=== PATIENT | female | born 1965 | race Caucasian/White ===

== ENCOUNTER 2023-04-22 20:12 | Emergency (ER) | payer BC, SELFPAY ==
[2023-04-22 20:25] VITALS: BP 127/67; PULSE 104; RESP 28; TEMP 39.8; O2SAT 94; BMI 24.4
[2023-04-22 20:44] VITALS: O2SAT 97
--- NOTE | 2023-04-22 20:44 | ED_ITS ---
HPI - Fever General Chief Complaint: Fever Stated Complaint: Flu like symptoms since Sunday Time Seen by Provider: 04/22/23 20:35 History of Present Illness HPI Narrative: This 57-year-old female arrives with generalized malaise and a temperature at 103.6? F. She denies having any cough or dysuria symptoms. She does arrive with borderline tachycardia and respiratory rate at 28 breaths per minute. Her blood pressure and oximetry are in normal range. She states that symptoms began for 5 days ago. Prior to this she was in good health. Related Data Previous Rx's Medication Instructions Recorded amoxicillin 875 mg-potassium 1 tab PO BID #20 tabs 04/22/23 clavulanate 125 mg tablet Allergies Allergy/AdvReac Type Severity Reaction Status Date / Time ciprofloxacin [From Cipro] AdvReac Mild GI upset Verified 04/22/23 20:32 Review of Systems Status of ROS Reports: 10 or more systems reviewed and unremarkable except as noted in History and below Narrative Constitutional: No weight gain or loss. Fever as described above. Eyes: No discharge. No vision changes. HENT: No congestion, no sore throat, no ear pain. Cardiovascular: No chest pain, no palpitations. Respiratory: No shortness of breath, no wheezes, no cough. Gastrointestinal: No abdominal pain, no vomiting, no diarrhea. Genitourinary: No dysuria, no hematuria. Musculoskeletal: Normal range of motion. Skin: No rashes, no pruritis. Neurological: No dizziness, weakness, sensory change, speech change. Endo/Heme/Allergies: No bruising or bleeding. No polydipsia. Pysch: no suicidality, no anxiety, no insomnia. All other systems reviewed and are negative. [facility] Medical History (Updated 04/22/23 @ 21:44 by Toribio Newberry MD) Malignant neoplasm of colon ?C18.9 - Malignant neoplasm of colon, unspecified (ICD-10) Misuse of drugs ?F19.90 - Other psychoactive substance use, unspecified, uncomplicated (ICD- 10) Major depressive disorder, single episode in full remission ?F32.5 - Major depressive disorder, single episode, in full remission (ICD- 10) History of suicide attempt ?Z91.51 - Personal history of suicidal behavior (ICD-10) Closed fracture of ankle ?S82.899A - Other fracture of unspecified lower leg, initial encounter for closed fracture (ICD-10) Surgical History (Updated 04/22/23 @ 20:31 by Velvet Esqueda RN) H/O tubal ligation ?Z98.51 - Tubal ligation status (ICD-10) Social History Smoking Status: Never smoker How often do you have a drink containing alcohol: never AUDIT-C Alcohol total score: 0 Non-prescribed substance use: denies use Exam Narrative Exam Narrative: Constitutional: Well-developed, well-nourished. She is uncomfortable with significant fever. HEENT: Normocephalic, atraumatic. Neck: Normal range of motion. Nontender. Supple. Heart: Regular. No murmurs. Normal rate. Intact distal pulses. Lungs: Clear to auscultation. No chest discomfort. No wheezes, rhonchi, or rales. Abdomen: Normal bowel sounds. Nontender. No rebound tenderness. Genitalia: Deferred. Back: No midline tenderness. Normal range of motion. Extremities: Normal range of motion. No injury. Skin: Intact. No rash. Warm. No erythema or pallor. Neurologic: No altered sensation. No weakness. Alert and oriented. Psychiatric: No suicidality. No anxiety or depression. No insomnia. Nursing notes and vitals signs are reviewed. Const Vital Signs, click to edit/add: Vital Signs - 24 hr 04/22/23 20:25 04/22/23 20:44 Temperature 103.6 F H Pulse Rate [Left Pulse Oximeter] 104 H Respiratory Rate 28 H Blood Pressure [Left Upper Arm] 127/67 Pulse Oximetry 94 97 Oxygen Delivery Method Room Air Room Air Course Vital Signs Vital signs: Initial Vital Signs Temperature 103.6 F H 04/22/23 20:25 Temperature Source Temporal Artery Scan 04/22/23 20:25 Pulse Rate 104 H 04/22/23 20:25 Respiratory Rate 28 H 04/22/23 20:25 Blood Pressure 127/67 04/22/23 20:25 Blood Pressure Mean 87 04/22/23 20:25 Blood Pressure Position Right Lateral 04/22/23 20:25 Pulse Oximetry 94 04/22/23 20:25 Oxygen Delivery Method Room Air 04/22/23 20:25 Vital Signs Temperature 103.6 F H 04/22/23 20:25 Pulse Rate 104 H 04/22/23 20:25 Respiratory Rate 28 H 04/22/23 20:25 Blood Pressure 127/67 04/22/23 20:25 Pulse Oximetry 94 04/22/23 20:25 Oxygen Delivery Method Room Air 04/22/23 20:25 Temperature 103.6 F H 04/22/23 20:25 Pulse Rate 104 H 04/22/23 20:25 Respiratory Rate 28 H 04/22/23 20:25 Blood Pressure 127/67 04/22/23 20:25 Pulse Oximetry 97 04/22/23 20:44 Oxygen Delivery Method Room Air 04/22/23 20:44 Medications Administered Medications: Generic Name Dose Route Start Last Admin Trade Name Gideon PRN Reason Stop Dose Admin Acetaminophen 1,000 mg 04/22/23 20:42 04/22/23 21:12 Acetaminophen 500 Mg Tablet PO 04/22/23 20:43 1,000 mg ONCE ONE Administration Sodium Chloride 1,000 mls @ 1,000 mls/hr 04/22/23 20:45 04/22/23 21:12 0.9 % Sodium Chloride 1000 Ml IV 04/22/23 21:44 1,000 mls/hr .Q1H CORDELIA Administration Ketorolac Tromethamine 30 mg 04/22/23 20:42 04/22/23 21:11 Ketorolac 30 Mg/Ml Inj IVP 04/22/23 20:43 30 mg ONCE ONE Administration MDM - Fever MDM Narrative Medical decision making narrative: This patient comes in with generalized malaise and a fever of 103.6? F. She does not report any cough or dysuria symptoms. She arrives with a bit of tachypnea and borderline tachycardia but otherwise has reassuring vital signs. I did order an IV with a L of normal saline, Toradol 30 mg. Lab results returned with a white count almost 18,000 and other lab results essentially normal. Her sodium is a bit low at 129. Her lactate level returns at 1.0. Nasal pharyngeal swab is negative for COVID, influenza, and RSV. Chest x-ray is obtained and by my review shows no acute infiltrate. Urinalysis is also acquired but results are pending at the time when the patient feels that she now wants to go home. She is diaphoretic now as her fever is breaking. I did not find an obvious source for her fever but given the white count at 18,000 and the urine results pending I did order her a g of Rocephin. This was administered after blood and urine. cultures are obtained . the patient is insistent that she wants to go home. She does not live alone at home. I did provide a prescription for Augmentin. Lab Data Labs: Lab Results 04/22/23 04/22/23 Range/Units 20:28 20:59 WBC 17.89 H (4.50-11.00) K/uL RBC 4.38 (4.00-5.20) m/uL Hgb 14.1 (12.0-16.0) gm/dL Hct 42.0 (33.0-51.0) % MCV 96 (80-100) fL MCH 32 (26-34) pg MCHC 34 (32-36) gm/dL RDW Coeff of Gayathri 11.8 (11.5-15.5) % Plt Count 190 (140-440) K/uL Neut % (Auto) 85.7 H (42.0-72.0) % Lymph % (Auto) 4.4 L (20-44) % Larue % (Auto) 9.3 (0.0-11.0) % Eos % (Auto) 0.1 (0.0-7.0) % Baso % (Auto) 0.2 (0.0-3.0) % Neut # (Auto) 15.30 H (1.7-7.0) K/uL Lymph # (Auto) 0.80 L (0.90-2.90) K/uL Larue # (Auto) 1.70 H (0.00-0.90) K/UL Eos # (Auto) 0.00 (0.00-0.50) K/uL Baso # (Auto) 0.00 (0.00-0.30) K/uL Abs Immat Gran (auto) 0.10 (0.00-0.30) K/uL Imm/Tot Granulo (auto) 0.3 % Sodium 129 L (135-149) mmol/L Potassium 3.9 (3.6-5.1) mmol/L Chloride 95 L (96-114) mmol/L Carbon Dioxide 24 (20-32) mmol/L Anion Gap 10 (7-15) mEq/L BUN 17 (7-30) mg/dL Creatinine 1.0 (0.5-1.5) mg/dL Estimated Creat Clear 67.93 Estimated GFR 66 ml/min Glucose 128 H (60-115) mg/dL Lactate 1.0 (0.5-1.9) mmol/L Calcium 9.2 (8.4-10.6) mg/dL SARS-CoV-2 (PCR) Negative SARS-CoV-2 (Negative) Influenza Type A (PCR) Negative PCR FLU A (Negative) Influenza Type B (PCR) Negative PCR FLU B (Negative) RSV (PCR) Negative PCR RSV (Negative) Discharge Plan Discharge Clinical Impression: Fever Patient Disposition: Home, Self-Care Condition: Improved Additional Instructions: Take medication as prescribed. Follow up with MD return if not improving or worsening. Prescriptions: New amoxicillin-pot clavulanate 875-125 mg tablet 1 tab PO BID Qty: 20 0RF Follow Up/Referrals: Provider,Not a Local [Primary Care Provider] - Stand Alone Forms: [email or web address] Info Instructions
--- NOTE | 2023-04-22 20:44 | XR_ITS ---
Final Report Patient: MITCHELL MCPHERSON Facility:?[facility] Patient ID:?[id number] Site Patient ID:?[id number] Site :?1965 Study:?XRay Chest 1V PORTABLE-04/22/2023 9:30:15 PM Ordering Physician:MUKUL Final Report: INDICATION: Fever, tachypnea, aches TECHNIQUE: Chest radiograph 1 view COMPARISON: None FINDINGS: Mediastinum: The mediastinum is normal in appearance. The heart silhouette is normal in size and morphology. Lung: Both lungs are unremarkable in appearance. No sign of pleural effusion seen. No pneumothorax is identified. Bone and Soft tissue: Unremarkable for age. IMPRESSION: 1. No acute cardiopulmonary disease is seen. Dictated by: Heraclio Oneill MD @ 04/22/2023 21:32:59 (Electronic Signature)
[2023-04-22 21:06] LABS: Basophils Percent Auto 0.2 % (0.0-3.0); Eosinophils Percent Auto 0.1 % (0.0-7.0); Hemoglobin* 14.1 gm/dL (12.0-16.0); Immature Granulocytes Pct Auto 0.3 %; Lymphocytes Percent Auto 4.4 % (20-44); Mean Corpuscular HGB Conc 34 gm/dL (32-36); Mean Corpuscular Hemoglobin 32 pg (26-34); Mean Corpuscular Volume 96 fL (80-100); Monocytes Percent Auto 9.3 % (0.0-11.0); Neutrophils Percent Auto 85.7 % (42.0-72.0); Platelet Count* 190 K/uL (140-440); RDW Coefficient of Variation % 11.8 % (11.5-15.5); Red Blood Count 4.38 m/uL (4.00-5.20); White Blood Count* 17.89 K/uL (4.50-11.00)
[2023-04-22 21:07] LABS: Slide Review Reflex No
[2023-04-22] MEDS: KETOROLAC 30 MG/ML inj IVP (21:11)
[2023-04-22] MEDS: ACETAMINOPHEN 500 MG TABLET 1000 MG PO (21:12)
[2023-04-22] MEDS: 0.9 % SODIUM CHLORIDE 1000 ml 1,000 ML IV (21:12)
[2023-04-22 21:15] LABS: PCR FLU A Negative PCR FLU A (Negative); PCR FLU B Negative PCR FLU B (Negative); PCR RSV Negative PCR RSV (Negative); SARS PCR* Negative SARS-CoV-2 (Negative)
[2023-04-22 21:21] LABS: Chloride* 95 mmol/L (96-114); Potassium* 3.9 mmol/L (3.6-5.1); Sodium* 129 mmol/L (135-149)
[2023-04-22 21:24] LABS: Anion Gap 10 mEq/L (7-15); Blood Urea Nitrogen* 17 mg/dL (7-30); Carbon Dioxide* 24 mmol/L (20-32); Est. Creatinine Clearance* 67.93; Estimated Glomerular Filt Rate 66 ml/min; Glucose* 128 mg/dL (60-115)
[2023-04-22 21:25] LABS: Calcium* 9.2 mg/dL (8.4-10.6)
--- OUTSIDE RECORDS SUMMARY | 2023-04-22 21:27 | XMS_ITS | Clinical Summary ---
Author Name Unknown Organization [facility] Address [address] [place] [address] Care Team Providers Care Forensic Psychologist Name Role Phone Elsewhere, Pcp Primary Care Provider Unavailabl e Source Comments Patient records contain information from all sites at [facility]. For routine questions regarding patient records, call [phone] during business hours, M-F 8:00 AM - 5:00 PM Central Time. Record requests for emergency care only can be directed to [phone] at any time.[facility] Allergies Active Allergy Reactions Criticality Noted Date Comments Ciprofloxacin Other (see comments) Medium 07/02/2008 Other reaction(s): Stomach Upset Medications Medication Sig Dispensed Refills Start Date End Date Status estradioL (VAGIFEM) 10 mcg vaginal tablet Insert 1 tablet (10 mcg) into vagina at bedtime for two weeks then at bedtime twice a week. 27 tablet 3 07/05/2021 Active clobetasoL (TEMOVATE) 0.05 % ointment Apply 1 application topically 2 (two) times a week. Apply thin layer to genital skin as directed in clinic 30 g 1 08/08/2021 Active Additional Information Patient not taking.Reported on 03/01/2023 valACYclovir (VALTREX) 1000 mg tablet Take 1 tablet (1,000 mg total) by mouth 3 (three) times a day. 21 tablet 0 09/12/2021 Active Additional Information Patient not taking.Reported on 03/01/2023 acetaminophen (TYLENOL) 325 mg tablet Take 325 mg by mouth every 4 (four) hours as needed for pain. 0 Active multivitamin chewable tablet Chew 1 tablet daily. 0 Active naproxen (NAPROSYN) 500 mg tablet Take 1 tablet (500 mg total) by mouth 2 (two) times a day as needed for pain (pain). Take with food 60 tablet 1 01/06/2022 Active Ventolin HFA 90 mcg/actuation inhaler INHALE 1 TO 2 PUFFS BY MOUTH EVERY 4 HOURS NEEDED FOR SHORTNESS OF BREATH OR WHEEZING 0 03/27/2022 Active hydrOXYzine (ATARAX) 10 mg tablet Take 1 tablet (10 mg total) by mouth 4 (four) times a day as needed for anxiety. 30 tablet 0 06/07/2022 Active predniSONE (DELTASONE) 20 mg tablet Take 3 tabs (60 mg) daily for 3 days, then take 2 tabs (40 mg) daily for 2 days, then take 1 tab (20 mg) daily for 2 days. 18 tablet 0 06/07/2022 Active Additional Information Patient not taking.Reported on 03/01/2023 varenicline (CHANTIX URIEL) 0.5 mg (11)- 1 mg (42) tablet Use as directed on package instructions, try to quit smoking after 1 week. 53 tablet 0 06/07/2022 Active Additional Information Patient not taking.Reported on 03/01/2023 varenicline (CHANTIX) 1 mg tablet Take 1 tablet (1 mg total) by mouth 2 (two) times a day. Take with full glass of water. 60 tablet 2 06/07/2022 Active Additional Information Patient not taking.Reported on 03/01/2023 nicotine (NICODERM CQ) 21 mg/[address] 1 patch on the skin daily. 28 patch 0 06/07/2022 Active Additional Information Patient not taking.Reported on 03/01/2023 nicotine (NICODERM CQ) 14 mg/[address] 1 patch on the skin daily. 28 patch 0 06/07/2022 Active Additional Information Patient not taking.Reported on 03/01/2023 Active Problems Problem Noted Date Diagnosed Date Lichen Sclerosus 05/16/2021 Suicide Attempt Personal History 01/12/2020 Overview: Tylenol overdose 01/2020 Depression Major One Episode Full Remission 11/2019 Overdose Drug Personal History 01/12/2020 Overview: Tylenol overdose 01/2020 Other Stimulant Use Unspecified Uncomplicated Overview: Meth use Nicotine Dependence Cigarettes 03/01/2007 Encounters Date Type Department Care Team Description 04/10/2023 Orders Only [facility] PCP [facility] Roxanna Burnett APRN, C.N.P. Screening Lipid; Screening Mammogram Breast Cancer 03/01/2023 6:30 PM [employer] Office Visit Urgent Care, [facility], in [place] [address] [place] [phone] Zaida Ragland APRN, C.N.P., D.N.P. Pruritus Ani (Primary Dx); Pruritus Vagina; Diarrhea; Vaginosis Bacterial Discharge Disposition: Home or Self Care from Last 3 Months Immunizations Name Administration Dates Next Due Td (Adult), adsorbed 06/14/1998 Tdap 10/18/2009 Family History Medical History Relation Name Comments No Known Problems Brother 1 No Known Problems Brother 2 Breast cancer Cousin No Known Problems Daughter 1 Cardiac pacemaker Father Breast cancer Maternal Grandmother Breast cancer Mother Cancer Mother Breast cancer Mother's Sister No Known Problems Sister No Known Problems Son Relation Name Status Comments Brother 1 Alive Brother 2 Alive Cousin Daughter 1 Alive Daughter 2 Alive Father Alive Maternal Grandmother Mother Mother's Sister Sister Alive Son Alive Social History Tobacco Use Types Packs/Day Years Used Date Smoking Tobacco: Former Cigarettes 1 Q uit: 04/09/2022 Smokeless Tobacco: Never Tobacco Cessation:Counseling Given: Not Answered Alcohol Use Standard Drinks/Week Comments Not Currently 0 (1 standard drink = 0.6 oz pur e alcohol) not no more Humiliation, Afraid, Rape, and Kick questionnair e Answer Date Recorded Within the last year, have y ou been afraid of your partner or ex-partner? No 06/01/2021 Within the last year, have y ou been humiliated or emotionally abused in other ways by your partner or ex-partner? Patient declined 06/01/2021 Within the last year, have y ou been kicked, hit, slapped, or otherwise physically hurt by your partner or ex-partner? Patient declined 06/01/2021 Within the last year, have y ou been raped or forced to have any kind of sexual activity by your partner or ex-partner? No 06/01/2021 Social Connection and Isolation Panel [NHANES] A nswer Date Recorded In a typical week, how many times do you talk on the phone with family, friends, or neighbors? Three times a week 06/01/2021 How often do you get togethe r with friends or relatives? Once a week 06/01/2021 How often do you attend chur or jehovah's witness services? Never 06/01/2021 Do you belong to any clubs o r organizations such as latter-day groups, unions, fraternal or athletic groups, or school groups? No 06/01/2021 How often do you attend meet ings of the clubs or organizations you belong to? Never 06/01/2021 Are you , , di vorced, , never , or living with a partner? Never 06/01/2021 AUDIT-C Answer Date Recorded Q1: How often do you have a drink containing alc ohol? 2-4 times a month 06/01/2021 Q2: How many drinks containi ng alcohol do you have on a typical day when you are drinking? 1 or 2 06/01/2021 Q3: How often do you have si x or more drinks on one occasion? Never 06/01/2021 Overall Financial Resource Strain (CARDIA) Answe r Date Recorded How hard is it for you to pa y for the very basics like food, housing, medical care, and heating? Hard 06/01/2021 PHQ-2 Answer Date Recorded PHQ-2 Score 0 01/06/2022 [facility] - Occupational Stress Questionnaire Answer Date Recorded Do you feel stress - tense, restless, nervous, or anxious, or unable to sleep at night because your mind is troubled all the time - these days? Only a little 06/01/2021 Exercise Vital Sign Answer Date Recorde d On average, how many days pe r week do you engage in moderate to strenuous exercise (like a brisk walk)? 3 days 06/01/2021 On average, how many minutes do you engage in exercise at this level? 30 min 06/01/2021 Hunger Vital Sign Answer Date Recorded Within the past 12 months, y ou worried that your food would run out before you got the money to buy more. Patient declined Within the past 12 months, t he food you bought just didn't last and you didn't have money to get more. Patient declined PRAPARE - Transportation Answer Date Re corded In the past 12 months, has l ack of transportation kept you from medical appointments or from getting medications? No 05/05 In the past 12 months, has l ack of transportation kept you from meetings, work, or from getting things needed for daily living? No 06/01/2021 Housing Stability Vital Sign Answer Zhou e Recorded In the last 12 months, was t here a time when you were not able to pay the mortgage or rent on time? Yes 06/01/2021 In the last 12 months, how many places have you lived? 4 06/01/2021 In the last 12 months, was t here a time when you did not have a steady place to sleep or slept in a senior care (including now)? Yes 06/01/2021 Depression Answer Date Recor ded PHQ-9 Total Score (max 27) 0 01/06 Nutrition Answer Date Recorded Nutrition: EVOO Fat Source No 06/01 On average, how many serving s of fruits and vegetables do you eat per day (serving size is equal to 1 cup or approximately the size of a tennis ball)? 0-1 06/01/2021 Dental Answer Date Recorded Dental: Regular Dentist No 06/02/19 22 Employment Answer Date Recorded Employment status Unemployed/not in th e paid workforce but seeking employment 06/01/2021 Education Answer Date Recorded What is the highest level of school you have completed or the highest degree you have received? GED or equivalent Sex and Gender Information Value Date Recorded Sex Assigned at Female 05/01/2018 3:00 PM [employer] Gender Identity Female 05/01/2018 3:00 PM [employer] Sexual Orientation Straight 05/17/2020 9: 58 PM CDT Last Filed Vital Signs Vital Sign Reading Time Taken Comments Blood Pressure 147/98 03/01/2023 5:49 PM [employer] Pulse 73 06/07/2022 1:49 PM CDT Temperature 36.8 ??C (98.2 ??F) 03/01/2023 5:45 PM CS T Respiratory Rate 20 03/01/2023 5:45 PM [employer]ER Oxygen Saturation 97% 03/01/2023 5:45 PM [employer]ER Inhaled Oxygen Concentration - - Weight 79 kg (174 lb 2.6 oz) 03/01/2023 5:45 PM [employer]ER Height 181 cm (5' 11.26) 01/06/2022 4:12 PM CDT Body Mass Index 24.11 01/06/2022 4:12 PM CDT Plan of Treatment Health Maintenance Due Date Last Done Comments CT Colonography 1965 Cologuard 1965 Colonoscopy 1965 Colorectal Cancer Screening 1965 FIT 1965 HIV Screening 1965 Hepatitis B Vaccines (1 of 3 - 3-dose series) 1965 Hepatitis C Screening 1965 COVID-19 Vaccine (#1) 05/04/1967 Hepatitis A Vaccines (1 of 2 - Risk 2-dose series) 1985 Zoster Vaccines (1 of 2) 2016 DTaP,Tdap,and Td Vaccines (2 - Td or Tdap) 10/19/2019 10/18/2009, 06/14/1998 Depression Monitoring (PHQ-9) 05/06/2022 01/06/2022 Cervical Cancer Screening 05/11/20222021, 05/11/2021, 03/24/2018 Mammogram 06/15/2022 06/15/2021, 03/11/2018 Influenza Vaccine (#1) 2022 Lipid (Cholesterol) Screening 06/05/2023 06/04/2018 Fasting Glucose for Diabetes Screening 10/29/2023 10/28/2020, 05/03/2020, 01/13/2020, Additional history exists Pneumococcal vaccine (0-64 years) Aged Out No longer eligible based on patient's age to complete this topic Medical Devices Implanted Type Area Crm Marketing Analyst Device Identifier Shelf Expiration Date Model / Serial / Lot 3.5 Mm Cortex Screw Self Tapping 20mm Implanted:Qty: 1 on 05/04/2020 by Pritesh Gagnon M.D. at [facility] Ankle Implant [employer] 204. 820 / 204.820 / Scrw Lcp St Lck Lp 3.5x16 - [id number] Implanted:Qty: 3 on 05/04/2020 by Pritesh Gagnon M.D. at [facility] Hardware e.g. pins/screws/r ods [employer] [id number] / / Procedures Procedure Name Priority Date/Time Associated Diagnosis Comments BACTERIAL CULTURE, AEROBIC + SUSC STAT 03/01/2023 6:22 PM [employer]ER Pruritus Ani VAGINITIS PANEL STAT 03/01/2023 6:22 PM [employer]ER Pruritus Vagina from Last 3 Months Results * (ABNORMAL) Vaginitis Panel (03/01/2023 6:22 PM [employer] TENDER) Mayra species, DNA Negative Negative 03/01/2023 7:15 PM [employer]ER NPRG Gardnerella vaginalis, DNA Positive(A) Negative 03/01/2023 7:15 PM [employer]ER NPRG Trichomonas vaginalis, DNA Negative Negative 03/01/2023 7:15 PM [employer] T[employer]ER NPRG Swab (Vagina) 03/01/2023 6:2 2 PM [employer] CON[employer]YOR TENDER 03/01/2023 6:28 PM [employer] CON[employer]OR TENDER Nydia Ma APRNN.Carol, D.N.P. LAB M [facility] ORDERABLES [facility] [address] [place] [address], [facility] NPRG [facility] [address] [place] [address] * Bacterial Culture, Aerobic + Susceptibility (03/01/2023 6:22 PM CHIP [employer] CON[employer]YOR TENDER) Bacterial Culture, Aerobic + Susc Usual microbiota 03/04/2023 9:58 AM CH[employer] CON[employer]OR TENDER MKTO Swab (Anus) 03/01/2023 6:22 PM CHIP [employer] CONVEYOR TENDER 03/01/2023 10:13 PM CHIP [employer] CON[employer]YOR TENDER Comment:Specimen Source Site : Swab Fuad Ma APRN.N.PPaul, D.N.P. LAB M ICROBIOLOGY - GENERAL ORDERABLES [facility] [address] [place] [address], [place] MKTO [facility] [place] [address] [place] [address] from Last 3 Months Advance Directives For more information, please contact: [phone] Latest Code Status on File Code Status Date Activated Date Inactivated Comments Full Code 01/12/2020 12:25 AM 01/13/2020 6:16 PM Question Answer Comments Full Code: Not Discussed Due to: Patient does not have the capaci ty Suicidal Care Teams Forensic Psychologist Relationship Specialty Start Date End Date Elsewhere, Pcp PCP - General Internal Medicine 04/11/23
--- OUTSIDE RECORDS SUMMARY | 2023-04-22 21:27 | XMS_ITS | Encounter Summary ---
Author Name Unknown Organization [facility] Address [address] [place] [address] Care Team Providers Care Administrative Assistant Data Entry Name Role Phone Roxanna Burnett APRN, C.N.P. Primary Care Provide r Reason for Referral * Outpatient (Routine) - Authorized Specialty Diagnoses / Procedures Referred By Duc castillo Referred To Contact Family Medicine Roxanna Burnett APRN, C.N.P. [address] [place] [address] [facility] Region Referral ID Status Reason Start Date Expiration Date V isits Requested Visits Authorized [id number] Authorized 04/10/2023 10/09/2024 1 1 MILLER * Outpatient (Routine) - Authorized Specialty Diagnoses / Procedures Referred By Duc castillo Referred To Contact Diagnoses Screening Mammogram Breast Cancer Procedures BI Breast Screening Bilateral with Tomosynthesis Roxanna Burnett APRN, C.N.P. [address] [place] [address] [facility] Region Referral ID Status Reason Start Date Expiration Date V isits Requested Visits Authorized [id number] Authorized 04/10/2023 04/09/2024 1 1 MILLER Encounter Details Date Type Department Care Team (Late st Contact Info) Description 04/10/2023 Orders Only [facility] Roxanna Burnett, FOOD MANAGER, C.N.P. [address] [place] [phone] Screening Lipid; Screening Mammogram Breast Cancer Social History Tobacco Use Types Packs/Day Years Used Date Smoking Tobacco: Former Cigarettes 1 Q uit: 04/09/2022 Smokeless Tobacco: Never Alcohol Use Standard Drinks/Week Comments Not Currently [...] 06/01/2021 How often do you attend chur ch or quaker services? Never 06/01/2021 Do you belong to any clubs o r organizations such as spiritism groups, unions, fraternal or athletic groups, or [...] Answer Date Recorded PHQ-2 Score 0 01/06/2022 [facility] - [...] place to sleep or slept in a long term (including now)? Yes 06/01/2021 Depression Answer Date [...] Date Recorded Dental: Regular Dentist No 06/02/19 Employment Answer Date Recorded Employment status Unemployed/not in th e paid workforce but seeking employment 06/01/2021 Education Answer Date Recorded What is the highest level of school you have completed or the highest degree you have received? GED or equivalent Sex and Gender Information Value Date Recorded Sex Assigned at Female 05/01/2018 3:00 PM MEAL MILLER Gender Identity Female 05/01/2018 3:00 PM MEAL MILLER Sexual Orientation Straight 05/17/2020 9: 58 PM CDT documented as of this encounter Plan of Treatment Scheduled Orders Name Type Priority Associated Diagnoses Order Schedule Lipid Panel Lab Routine Screening Lipid Expected: 04/24/2023, Expires: 10/07/2023 BI Breast Screening Bilateral with Tomosynthesis Imaging RAD - Routine (most inpatients and all outpatients) Screening Mammogram Breast Cancer Expected: 05/10/2023, Expires: 10/07/2023 Scheduled Referrals Name Type Priority Associated Diagnoses Orde r Schedule Family Medicine office visit (clinic) Outpatient Referral Routine Expected: 04/24/2023, Expires: 10/07/2023 documented as of this encounter Visit Diagnoses Diagnosis Screening Lipid Screening Mammogram Breast Cancer documented in this encounter Additional Health Concerns Assessment Noted Time PHQ-9 Depression Total Score: 0 01/07/20 4:13 PM CDT documented as of this encounter Care Teams Administrative Assistant Data Entry Relationship Specialty Start Date End Date Roxanna Burnett APRN, C.N.P. [address] [place] [phone] PCP - General Family Medicine 01/05/22 04/10/23 documented as of this encounter
--- OUTSIDE RECORDS SUMMARY | 2023-04-22 21:27 | XMS_ITS ---
Author Name Unknown Organization [facility] Address [address] [place] [address] Care Team Providers Care Faculty Research Assistant Name Role Phone Unavailable Unavailable Unavailable Surgery Details Not on file Complications Check Surgery Details section. Procedure Estimated Blood Loss Check Surgery Details section. Procedure Findings Check Surgery Details section. Procedure Specimens Taken Check Surgery Details section.
--- OUTSIDE RECORDS SUMMARY | 2023-04-22 21:27 | XMS_ITS | Referral Summary ---
Author Name Unknown Organization [facility] Address [address] [place] [address] Care Team Providers Care Community Theater Actor Name Role Phone Elsewhere, Pcp Primary Care Provider Unavailabl e Source Comments Patient records contain information from all sites at [facility]. For routine questions regarding patient records, call [phone] during business hours, M-F 8:00 AM - 5:00 PM Central Time. Record requests for emergency care only can be directed to [phone] at any time.[facility] Encounters Date Type Department Care Team Description 04/10/2023 Orders Only [facility] Roxanna Burnett APRN, C.N.P. Screening Lipid; Screening Mammogram Breast Cancer 03/01/2023 6:30 PM COMPUTER APPLICATIONS DEVELOPER Office Visit Urgent Care, [facility], in [place], [place] [address] [place] [address] Zaida Ragland APRN, C.N.P., D.N.P. Pruritus Ani (Primary Dx); Pruritus Vagina; Diarrhea; Vaginosis Bacterial Discharge Disposition: Home or Self Care from Last 3 Months Allergies Active Allergy Reactions Criticality Noted Date [...] Overview: Meth use Nicotine Dependence Cigarettes 03/01/2007 Immunizations Name Administration Dates Next Due Td (Adult), adsorbed 06/14/1998 Tdap 10/18/2009 Social History Tobacco Use Types Packs/Day Years [...] often do you attend chur ch or congregation services? Never 06/01/2021 Do you belong to any clubs o r organizations such as confucianist groups, unions, fraternal or athletic groups, or [...] Answer Date Recorded PHQ-2 Score 0 01/06/2022 [facility] - Occupational [...] place to sleep or slept in a usp (including now)? Yes 06/01/2021 Depression Answer Date [...] Sex Assigned at Female 05/01/2018 3:00 PM COMPUTER APPLICATIONS DEVELOPER Gender Identity Female 05/01/2018 3:00 PM COMPUTER APPLICATIONS DEVELOPER Sexual Orientation Straight 05/17/2020 9: 58 PM CDT Last Filed Vital Signs Vital Sign Reading Time Taken Comments Blood Pressure 147/98 03/01/2023 5:49 PM COMPUTER APPLICATIONS DEVELOPER Pulse 73 06/07/2022 1:49 PM CDT Temperature 36.8 ??C (98.2 ??F) 03/01/2023 5:45 PM CS T Respiratory Rate 20 03/01/2023 5:45 PM COMPUTER APPLICATIONS DEVELOPER Oxygen Saturation 97% 03/01/2023 5:45 PM COMPUTER APPLICATIONS DEVELOPER Inhaled Oxygen Concentration - - Weight 79 kg (174 lb 2.6 oz) 03/01/2023 5:45 PM COMPUTER APPLICATIONS DEVELOPER Height 181 cm (5' 11.26) 01/06/2022 4:12 PM CDT Body Mass Index 24.11 01/06/2022 4:12 PM CDT Plan of Treatment Not on file Medical Devices Implanted Type Area Scientific Manager Device Identifier Shelf Expiration Date Model / Serial / Lot 3.5 Mm Cortex Screw Self Tapping 20mm Implanted:Qty: 1 on 05/04/2020 by Pritesh Gagnon M.D. at [facility] Ankle Implant Dep[employer] Synthes 204. 820 / 204.820 / Scrw Lcp St Lck Lp 3.5x16 - [id number] Implanted:Qty: 3 on 05/04/2020 by Pritesh Gagnon M.D. at [facility] Hardware e.g. pins/screws/r ods [employer]ynthes 212.104 / / Procedures Procedure Name Priority Date/Time Associated Diagnosis Comments BACTERIAL CULTURE, AEROBIC + SUSC STAT 03/01/2023 6:22 PM COMPUTER APPLICATIONS DEVELOPER Pruritus Ani VAGINITIS PANEL STAT 03/01/2023 6:22 PM COMPUTER APPLICATIONS DEVELOPER Pruritus Vagina from Last 3 Months Results * (ABNORMAL) Vaginitis Panel (03/01/2023 6:22 PM COMPUTER APPLICATIONS DEVELOPER) Mayra species, DNA Negative Negative 03/01/2023 7:15 PM COMPUTER APPLICATIONS DEVELOPER NPRG Gardnerella vaginalis, DNA Positive(A) Negative 03/01/2023 7:15 PM COMPUTER APPLICATIONS DEVELOPER NPRG Trichomonas vaginalis, DNA Negative Negative 03/01/2023 7:15 PM COMPUTER APPLICATIONS DEVELOPER NPRG Swab (Vagina) 03/01/2023 6:2 2 PM COMPUTER APPLICATIONS DEVELOPER 03/01/2023 6:28 PM COMPUTER APPLICATIONS DEVELOPER Fuad Ma APRN.N.P., D.N.P. LAB M ICROBIOLOGY - GENERAL ORDERABLES [facility] [address] [place] [address], [place] NPRG [facility] [address] [place] [address] * Bacterial Culture, Aerobic + Susceptibility (03/01/2023 6:22 PM COMPUTER APPLICATIONS DEVELOPER) Bacterial Culture, Aerobic + Susc Usual microbiota 03/04/2023 9:58 AM COMPUTER APPLICATIONS DEVELOPER MKTO Swab (Anus) 03/01/2023 6:22 PM COMPUTER APPLICATIONS DEVELOPER 03/01/2023 10:13 PM COMPUTER APPLICATIONS DEVELOPER Comment:Specimen Source Site : Swab Nydia Ma APRNNPaulPPaul, D.N.PPaul LAB M ICROBIOLOGY - GENERAL ORDERABLES [facility] [address] [place] [address], [place] MKTO [facility] [place] [address] [place] [address] from Last 3 Months Advance Directives For more information, please contact: [phone] Latest Code Status on File Code Status Date Activated Date Inactivated Comments Full Code 01/12/2020 12:25 AM 01/13/2020 6:16 PM Question Answer Comments Full Code: Not Discussed Due to: Patient does not have the capaci ty Suicidal Care Teams Community Theater Actor Relationship Specialty Start Date End Date Elsewhere, Pcp PCP - General Internal Medicine 04/11/23
--- OUTSIDE RECORDS SUMMARY | 2023-04-22 21:28 | XMS_ITS | Encounter Summary ---
Author Name Unknown Organization [facility] Address [address] [place] [address] Care Team Providers Care Extrusion Process Operator Name Role Phone Roxanna Burnett APRN, C.N.P. Primary Care Provide r Encounter Details Date Type Department Care Team (Late st Contact Info) Description 07/27/2022 Orders Only [facility] Roxanna Burnett, KEERTHI, C.N.P. [address] [place] [address] Screening Mammogram Breast Cancer Social History Tobacco [...] often do you attend chur ch or restorationist services? Never 06/01/2021 Do you belong to any clubs o r organizations such as muslim groups, unions, fraternal or athletic groups, or [...] Answer Date Recorded PHQ-2 Score 0 01/06/2022 [facility] - Occupational Stress [...] place to sleep or slept in a alf (including now)? Yes 06/01/2021 Depression Answer Date [...] Sex Assigned at Female 05/01/2018 3:00 PM ANIMAL CARE PROVIDER Gender Identity Female 05/01/2018 3:00 PM ANIMAL CARE PROVIDER Sexual Orientation Straight 05/17/2020 9: 58 PM CDT documented as of this encounter Plan of Treatment Not on file documented as of this encounter Visit Diagnoses Diagnosis Screening Mammogram Breast Cancer documented in this encounter Additional Health Concerns Assessment Noted Time PHQ-9 Depression Total Score: 0 01/07/20 22 4:13 PM CDT documented as of this encounter Care Teams Extrusion Process Operator Relationship Specialty Start Date End Date Roxanna Burnett APRN, C.N.P. [address] [facility] [place] [phone] PCP - General Family Medicine 01/05/22 04/10/23 documented as of this encounter
--- OUTSIDE RECORDS SUMMARY | 2023-04-22 21:28 | XMS_ITS | Encounter Summary ---
Author Name Unknown Organization [facility] Address [address] [place] [address] Care Team Providers Care Jig Builder Name Role Phone Roxanna Burnett APRN, C.N.P. Primary Care Provide r Reason for Visit * Reason Comments Rash Started last weekend , all over body, itchy Nicotine Dependence Would like to discus s cessation * Appointment Request (Routine) - Closed Specialty Diagnoses / Procedures Referred By Contac t Referred To Contact Family Medicine Referral ID Status Reason Start Date Expiration Date Visits Re quested Visits Authorized [id number] Closed 06/07/2022 06/07/2023 1 1 Encounter Details Date Type Department Care Team (Late Contact Info) Description 06/07/2022 2:00 PM CDT Office Visit Department of Family Medicine in [place], [place] [address] [place] [phone] Renetta Hansen APRN, C.N.P. [address] [place] [phone] Nicotine Dependence Cigarettes (Primary Dx); Depression Major One Episode Full Remission (HCC); Other Urticaria Social History Tobacco Use Types Packs/Day Years [...] How often do you attend chur or jain services? Never 06/01/2021 Do you belong to any clubs o r organizations such as holiness groups, unions, fraternal or athletic groups, or [...] Answer Date Recorded PHQ-2 Score 0 01/06/2022 [facility] - Occupational [...] place to sleep or slept in a group home (including now)? Yes 06/01/2021 Depression Answer Date [...] Sex Assigned at Female 05/01/2018 3:00 PM LEADERSHIP DEVELOPMENT INSTRUCTOR Gender Identity Female 05/01/2018 3:00 PM LEADERSHIP DEVELOPMENT INSTRUCTOR Sexual Orientation Straight 05/17/2020 9: 58 PM CDT documented as of this encounter Last Filed Vital Signs Vital Sign Reading Time Taken Comments Blood Pressure 148/90 06/07/2022 1:49 PM CDT Pulse 73 06/07/2022 1:49 PM CDT Temperature 36.9 ??C (98.4 ??F) 06/07/2022 1:49 PM CD T Respiratory Rate 16 06/07/2022 1:49 PM CDT Oxygen Saturation 98% 06/07/2022 1:49 PM CDT Inhaled Oxygen Concentration - - Weight 77.9 kg (171 lb 12.8 oz) 06/07/2022 1:49 PM CDT Height - - Body Mass Index 23.79 01/06/2022 4:12 PM CDT documented in this encounter Progress Notes * Renetta Hansen, KEERTHI, C.N.P. - 06/07/2022 2:00 PM CDT SUBJECTIVE CHIEF COMPLAINT / REASON FOR VISIT Shannon Silva presents for evaluation of Rash (Started last weekend, all over body, itchy) and Nicotine Dependence (Would like to discuss cessation//) HISTORY OF PRESENT ILLNESS Shannon Silva is a pleasant 56 y.o. female who presents for 1. Smoking cessation. She isinterested in restraining Chantix. She has taken in the past which did help her quit for short period of time vaping but was smoking 1 pack per day of cigarettes. She is also interested in using nicotine patches as well. She tolerated both in the past before. 2. Complaining of all-over body rash, intense itching. She actually states that she can feel a rashdeveloping that is causing itching, she scratches and then the rash comes out. It started on the lower leg and it has been present for about 1 week. She does feel that this is stress related as she has been under a lot of stress with her work and current court case. She has been feeling more anxious. She does not want to be on an anxiety medication at this time. No new soap or body wash, no drainage from the lesion. No fever, chills or sweats. No recent illnesses or upper respiratory tract infection. The following portions of the patient's history were reviewed and updated as appropriate: allergies, current medications, family history, medical history, social history, surgical history and problemlist. Review Of Systems A comprehensive review of systems was completed and all systems are negative except as listed underthe HPI. OBJECTIVE BP (P) 143/88 Pulse 73 Temp 36.9 ??C (Temporal) Resp 16 Wt 77.9 kg LMP (LMP Unknown) SpO2 98% BMI 23.79 kg/m?? PHYSICAL EXAM General: Patient is alert, oriented x 3 and in no acute distress. Skin: She is 3 raised hive-like lesions on her left lower leg with mild erythema. Excoriation is noted over her entire leg and arms. There are no other visible lesions at this time. There is no vesicles, pustules, drainage. She is scratching all over her body throughout our entire exam today. ASSESSMENT / PLAN #1 Depression Major One Episode Full Remission (HCC) Stable #2 Nicotine Dependence Cigarettes Smoking cessation was reviewed and counseling provided today. Chantix and nicotine patch were prescribed as below. Complete instructions and side-effect profile reviewed. Support was provided today. #3 Other Urticaria We discussed causes of urticaria or hive-like lesions. I do agree with patient that her overall stress and anxiety is most likely causing hives to develop. We discussed treatment options, stress relief, cool compress, moisturizing skin. Discouraged itching or scratching. Hydroxyzine 10 mg was prescribed as below in addition to a prednisone taper dose. Side-effect profile was reviewed. Call or return if no improvement within the next 3-5 days. Other orders - hydrOXYzine (ATARAX) 10 mg tablet; Take 1 tablet (10 mg total) by mouth 4 (four) times a day as needed for anxiety., Starting Sun06/07/2022, Normal - predniSONE (DELTASONE) 20 mg tablet; Take 3 tabs (60 mg) daily for 3 days, then take 2 tabs (40 mg) daily for 2 days, then take 1 tab (20 mg) daily for 2 days., Normal - varenicline (CHANTIX URIEL) 0.5 mg (11)- 1 mg (42) tablet; Use as directed on package instructions,try to quit smoking after 1 week., Normal - varenicline (CHANTIX) 1 mg tablet; Take 1 tablet (1 mg total) by mouth 2 (two) times a day. Take with full glass of water., Starting Sun06/07/2022, Normal - nicotine (NICODERM CQ) 21 mg/24 hr patch; Place 1 patch on the skin daily., Starting Sun06/07/2022, Normal - nicotine (NICODERM CQ) 14 mg/24 hr patch; Place 1 patch on the skin daily., Starting Sun06/07/2022, Normal documented in this encounter Plan of Treatment Not on file documented as of this encounter Visit Diagnoses Diagnosis Nicotine Dependence Cigarettes- Primary Depression Major One Episode Full Remission (HCC) Other Urticaria documented in this encounter Additional Health Concerns Assessment Noted Time PHQ-9 Depression Total Score: 0 01/07/20 22 4:13 PM CDT documented as of this encounter Care Teams Jig Builder Relationship Specialty Start Date End Date Roxanna Burnett APRN, [place] [phone] PCP - General Family Medicine 01/05/22 04/10/23 documented as of this encounter
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
--- OUTSIDE RECORDS SUMMARY | 2023-04-22 21:28 | XMS_ITS | Encounter Summary ---
Author Name Unknown Organization [facility] Address [address] [place] [address] Care Team Providers Care Corporate Technical Recruiter Name Role Phone Roxanna Burnett APRN, C.N.P. Primary Care Provide r Reason for Visit * Reason Onset Date Comments Disability Form 04/26/2022 Encounter Details Date Type Department Care Team (Latest Contact Info) Description 04/26/2022 Clinical Communication Department of Physical Medicine and Rehabilitation in [place], [place] [address] [place] [address] Jatin Escamilla M.D. [address] [place] [phone] Disability Form Social History Tobacco Use Types Packs/Day Years Used Date Smoking Tobacco: Every Day Cigarettes 1 Smokeless Tobacco: Never Alcohol Use Standard Drinks/Week [...] How often do you attend chur or jewish services? Never 06/01/2021 Do you belong to any clubs o r organizations such as mandaen groups, unions, fraternal or athletic groups, or [...] Answer Date Recorded PHQ-2 Score 0 01/06/2022 [facility]ational [facility] Questionnaire Answer [...] place to sleep or slept in a snf (including now)? Yes 06/01/2021 Depression Answer Date [...] Sex Assigned at Female 05/01/2018 3:00 PM BIOLOGY FACULTY MEMBER Gender Identity Female 05/01/2018 3:00 PM BIOLOGY FACULTY MEMBER Sexual Orientation Straight 05/17/2020 9: 58 PM CDT documented as of this encounter Miscellaneous Notes * Telephone Encounter - Tatiana Gay Js - 04/26/2022 9:12 AM CST PROVIDER'S NAME: Dr. Escamilla CALLER'S NAME: Tracey Kim at [employer] WHAT IS THE CALL REGARDING? Reason for the Call: Tracey has a disability form for the patient and was wondering if Dr. Segura fill it out. Details/Desired Outcome: Disability form filled out. Additional Comments: I have given her our fax number, please keep an eye out for the form. Please call her if you have any questions. Tracey Kim's [employer] General Office Number: [phone] [employer] PATIENT OR CALLER'S PHONE NUMBER: [phone] OGY FACULTY MEMBER documented in this encounter Plan of Treatment Not on file documented as of this encounter Visit Diagnoses Not on filedocumented in this encounter Additional Health Concerns Assessment Noted Time PHQ-9 Depression Total Score: 0 01/07/20 22 4:13 PM CDT documented as of this encounter Care Teams Corporate Technical Recruiter Relationship Specialty Start Date End Date Roxanna Burnett APRN, C.N.P. [address] [place] [phone] PCP - General Family Medicine 01/05/22 04/10/23 documented as of this encounter
[2023-04-22 21:33] VITALS: BP 133/67; PULSE 91; O2SAT 96
[2023-04-22 21:34] VITALS: PULSE 92; O2SAT 97
--- NOTE | 2023-04-22 21:57 | ED.NURSE ---
creative writer instructed pt that they needed to grab the pt one more medication and then creative writer would remove IV and give pt discharge paperwork. When creative writer exited Medication room creative writer was notified by security that pt had eloped.
--- NOTE | 2023-04-23 12:57 | ED.NURSE ---
Critical value received from lab: Gram neg rods in blood culture bottle. Dr. Newberry notified. MD to call Pt, no further orders received.
== END 2023-04-22 21:58 | disposition home or self-care (01) ==
PROVIDERS: Family Medicine; Emergency Provider Emergency Medicine Emergency Medical Services
DX: R50.9 Fever, unspecified (principal)
CPT/HCPCS: 36415; 71045; 80048; 83605; 85025; 87040; 87186; 87631; 96372; 96374; 96375; 99284; A9270; J1885; J7030

== ENCOUNTER 2023-04-23 15:34 | Emergency (ER) | payer BC, SELFPAY ==
[2023-04-23] VITALS (21 sets, daily range): BP systolic 116–141; BP diastolic 59–84; PULSE 91–103; RESP 14; TEMP 36.2–39.5; O2SAT 93–98; BMI 24.4
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
[2023-04-23 16:06] LABS: Lactate* 1.8 mmol/L (0.5-1.9)
[2023-04-23 16:10] LABS: Basophils Percent Auto 0.1 % (0.0-3.0); Hematocrit 42.7 % (33.0-51.0); Hemoglobin* 14.3 gm/dL (12.0-16.0); Immature Granulocytes Pct Auto 1.2 %; Lymphocytes Percent Auto 3.8 % (20-44); Mean Corpuscular HGB Conc 34 gm/dL (32-36); Mean Corpuscular Hemoglobin 32 pg (26-34); Mean Corpuscular Volume 96 fL (80-100); Monocytes Percent Auto 11.2 % (0.0-11.0); Neutrophils Percent Auto 83.7 % (42.0-72.0); Platelet Count* 179 K/uL (140-440); RDW Coefficient of Variation % 11.7 % (11.5-15.5); Red Blood Count 4.43 m/uL (4.00-5.20); White Blood Count* 22.53 K/uL (4.50-11.00)
[2023-04-23] MEDS: metroNIDAZOLE 500 MG/100 ML PIGGYBACK 100 MG IVPB (16:12)
[2023-04-23] MEDS: PIPERACILLIN/TAZOBACTAM 3.375 GM in 0.9 % SODIUM CHLORIDE Mini-bag 100 ML IVPB (16:12)
--- OUTSIDE RECORDS SUMMARY | 2023-04-23 16:24 | XMS_ITS | Referral Summary ---
Author Name Unknown Organization [facility] Address [address] [place] [address] Care Team Providers Care Sales Recruitment Specialist Name Role Phone Elsewhere, Pcp Primary Care Provider Unavailabl e Source Comments Patient records contain information from all sites at [facility]. For routine questions regarding patient records, call [phone] during business hours, M-F 8:00 AM - 5:00 PM Central Time. Record requests for emergency care only can be directed to [phone] at any time.[facility] Encounters Date Type Department Care Team Description 04/10/2023 Orders Only [facility] MNT Roxanna Burnett APRN, C.N.P. Screening Lipid; Screening Mammogram Breast Cancer 03/01/2023 6:30 PM BALANCE STAFF STAKER Office Visit Urgent Care, [facility], in [place], [place] [address] [place] [address] Zaida Ragland APRN, C.N.P., D.N.P. [...] often do you attend chur ch or orthodox services? Never 06/01/2021 Do you belong to any clubs o r organizations such as zoroastrian groups, unions, fraternal or athletic groups, or [...] Answer Date Recorded PHQ-2 Score 0 01/06/2022 [facility] Occupat ional Health - [...] Sex Assigned at Female 05/01/2018 3:00 PM BALANCE STAFF STAKER Gender Identity Female 05/01/2018 3:00 PM BALANCE STAFF STAKER Sexual Orientation Straight 05/17/2020 9: 58 PM CDT Last Filed Vital Signs Vital Sign Reading Time Taken Comments Blood Pressure 147/98 03/01/2023 5:49 PM BALANCE STAFF STAKER Pulse 73 06/07/2022 1:49 PM CDT Temperature 36.8 ??C (98.2 ??F) 03/01/2023 5:45 PM CS T Respiratory Rate 20 03/01/2023 5:45 PM BALANCE STAFF STAKER Oxygen Saturation 97% 03/01/2023 5:45 PM BALANCE STAFF STAKER Inhaled Oxygen Concentration - - Weight 79 kg (174 lb 2.6 oz) 03/01/2023 5:45 PM BALANCE STAFF STAKER Height 181 cm (5' 11.26) 01/06/2022 4:12 PM CDT Body Mass Index 24.11 01/06/2022 4:12 PM CDT Plan of Treatment Not on file Medical Devices Implanted Type Area Projector Operator Device Identifier Shelf Expiration Date Model / Serial / Lot 3.5 Mm Cortex Screw Self Tapping 20mm Implanted:Qty: 1 on 05/04/2020 by Pritesh Gagnon M.D. at [facility] Ankle Implant Depuy Synthes 204. 820 / 204.820 / Scrw Lcp St Lck Lp 3.5x16 - [id number] Implanted:Qty: 3 on 05/04/2020 by Pritesh Gagnon M.D. at [facility] Hardware e.g. pins/screws/r ods Depuy Synthes 212.104 / / Procedures Procedure Name Priority Date/Time Associated Diagnosis Comments BACTERIAL CULTURE, AEROBIC + SUSC STAT 03/01/2023 6:22 PM BALANCE STAFF STAKER Pruritus Ani VAGINITIS PANEL STAT 03/01/2023 6:22 PM BALANCE STAFF STAKER Pruritus Vagina from Last 3 Months Results * (ABNORMAL) Vaginitis Panel (03/01/2023 6:22 PM BALANCE STAFF STAKER) Mayra species, DNA Negative Negative 03/01/2023 7:15 PM BALANCE STAFF STAKER NPRG Gardnerella vaginalis, DNA Positive(A) Negative 03/01/2023 7:15 PM BALANCE STAFF STAKER NPRG Trichomonas vaginalis, DNA Negative Negative 03/01/2023 7:15 PM BALANCE STAFF STAKER NPRG Swab (Vagina) 03/01/2023 6:2 2 PM BALANCE STAFF STAKER 03/01/2023 6:28 PM BALANCE STAFF STAKER Fuad Ma APRN.N.P., D.N.P. LAB M ICROBIOLOGY - GENERAL ORDERABLES [facility] [address] [place] [address], [place] NPRG [facility] [address] [place] [address] * Bacterial Culture, Aerobic + Susceptibility (03/01/2023 6:22 PM BALANCE STAFF STAKER) Bacterial Culture, Aerobic + Susc Usual microbiota 03/04/2023 9:58 AM BALANCE STAFF STAKER MKTO Swab (Anus) 03/01/2023 6:22 PM BALANCE STAFF STAKER 03/01/2023 10:13 PM BALANCE STAFF STAKER Comment:Specimen Source Site : Swab Nydia Ma APRNNPaulPPaul, D.N.PPaul LAB M ICROBIOLOGY - GENERAL ORDERABLES [facility] [address] [place] [address], [place] MKTO [facility] [place] [address] [place] [address] from Last 3 Months Advance Directives For more information, please contact: [phone] Latest Code Status on File Code Status Date Activated Date Inactivated Comments Full Code 01/12/2020 12:25 AM 01/13/2020 6:16 PM Question Answer Comments Full Code: Not Discussed Due to: Patient does not have the capaci ty Suicidal Care Teams Sales Recruitment Specialist Relationship Specialty Start Date End Date Elsewhere, Pcp PCP - General Internal Medicine 04/11/23
--- OUTSIDE RECORDS SUMMARY | 2023-04-23 16:24 | XMS_ITS | Clinical Summary ---
Author Name Unknown Organization [facility] Address [address] [place] [address] Care Team Providers Care Swimming Pool Maintenance Name Role Phone Elsewhere, Pcp Primary Care Provider Unavailabl e Source Comments Patient records contain information from all sites at [facility]. For routine questions regarding patient records, call [phone] during business hours, M-F 8:00 AM - 5:00 PM Central Time. Record requests for emergency care only can be directed to [phone] at any time.[facility] Allergies Active Allergy Reactions Criticality Noted Date [...] Screening Mammogram Breast Cancer 03/01/2023 6:30 PM MARKET RISK ANALYST Office Visit Urgent Care, [facility], in [place] [address] [place] [phone] Zaida Ragland APRN, C.N.P., D.N.P. Pruritus Ani [...] How often do you attend chur or oriental orthodox services? Never 06/01/2021 Do you belong to any clubs o r organizations such as uatsdin groups, unions, fraternal or athletic groups, or [...] Answer Date Recorded PHQ-2 Score 0 01/06/2022 [facility] of Occupat ional Health - [...] Sex Assigned at Female 05/01/2018 3:00 PM MARKET RISK ANALYST Gender Identity Female 05/01/2018 3:00 PM MARKET RISK ANALYST Sexual Orientation Straight 05/17/2020 9: 58 PM CDT Last Filed Vital Signs Vital Sign Reading Time Taken Comments Blood Pressure 147/98 03/01/2023 5:49 PM MARKET RISK ANALYST Pulse 73 06/07/2022 1:49 PM CDT Temperature 36.8 ??C (98.2 ??F) 03/01/2023 5:45 PM CS T Respiratory Rate 20 03/01/2023 5:45 PM MARKET RISK ANALYST Oxygen Saturation 97% 03/01/2023 5:45 PM MARKET RISK ANALYST Inhaled Oxygen Concentration - - Weight 79 kg (174 lb 2.6 oz) 03/01/2023 5:45 PM MARKET RISK ANALYST Height 181 cm (5' 11.26) 01/06/2022 4:12 [...] this topic Medical Devices Implanted Type Area Quality Control Manager Device Identifier Shelf Expiration Date Model / Serial / Lot 3.5 Mm Cortex Screw Self Tapping 20mm Implanted:Qty: 1 on 05/04/2020 by Pritesh Gagnon M.D. at [facility] Ankle Implant Depuy Synthes 204. 820 / 204.820 / Scrw Lcp St Lck Lp 3.5x16 - [id number] Implanted:Qty: 3 on 05/04/2020 by Pritesh Gagnon M.D. at [facility] Hardware e.g. pins/screws/r ods Depuy Synthes [id number] / / Procedures Procedure Name Priority Date/Time Associated Diagnosis Comments BACTERIAL CULTURE, AEROBIC + SUSC STAT 03/01/2023 6:22 PM MARKET RISK ANALYST Pruritus Ani VAGINITIS PANEL STAT 03/01/2023 6:22 PM MARKET RISK ANALYST Pruritus Vagina from Last 3 Months Results * (ABNORMAL) Vaginitis Panel (03/01/2023 6:22 PM MARKET RISK ANALYST) Mayra species, DNA Negative Negative 03/01/2023 7:15 PM MARKET RISK ANALYST NPRG Gardnerella vaginalis, DNA Positive(A) Negative 03/01/2023 7:15 PM MARKET RISK ANALYST NPRG Trichomonas vaginalis, DNA Negative Negative 03/01/2023 7:15 PM MARKET RISK ANALYST NPRG Swab (Vagina) 03/01/2023 6:2 2 PM MARKET RISK ANALYST 03/01/2023 6:28 PM MARKET RISK ANALYST Nydia Ma APRNN.Carol, D.N.P. LAB M [facility] ORDERABLES [facility] [address] [place] [address], [facility] NPRG [facility] [address] [place] [address] * Bacterial Culture, Aerobic + Susceptibility (03/01/2023 6:22 PM MARKET RISK ANALYST) Bacterial Culture, Aerobic + Susc Usual microbiota 03/04/2023 9:58 AM MARKET RISK ANALYST MKTO Swab (Anus) 03/01/2023 6:22 PM MARKET RISK ANALYST 03/01/2023 10:13 PM MARKET RISK ANALYST Comment:Specimen Source Site : Swab Fuad Ma APRN.N.PPaul, D.N.P. LAB M ICROBIOLOGY - GENERAL ORDERABLES [facility] [address] [place] [address], [place] MKTO [facility] [place] [address] [place] [address] from Last 3 Months Advance Directives For more information, please contact: [phone] Latest Code Status on File Code Status Date Activated Date Inactivated Comments Full Code 01/12/2020 12:25 AM 01/13/2020 6:16 PM Question Answer Comments Full Code: Not Discussed Due to: Patient does not have the capaci ty Suicidal Care Teams Swimming Pool Maintenance Relationship Specialty Start Date End Date Elsewhere, Pcp PCP - General Internal Medicine 04/11/23
--- OUTSIDE RECORDS SUMMARY | 2023-04-23 16:24 | XMS_ITS | Encounter Summary ---
Author Name Unknown Organization [facility] Address [address] [place] [address] Care Team Providers Care Epidemiology Intern Name Role Phone Roxanna Burnett APRN, C.N.P. Primary Care Provide r Reason for Referral * Outpatient (Routine) - Authorized Specialty Diagnoses / Procedures Referred By Duc castillo Referred To Contact Family Medicine Roxanna Burnett APRN, C.N.P. [address] [place] [address] [facility] Region Referral ID Status Reason Start Date Expiration Date V isits Requested Visits Authorized [id number] Authorized 04/10/2023 10/09/2024 1 1 STIGATION MANAGER * Outpatient (Routine) - Authorized Specialty Diagnoses / Procedures Referred By Duc castillo Referred To Contact Diagnoses Screening Mammogram Breast Cancer Procedures BI Breast Screening Bilateral with Tomosynthesis Roxanna Burnett APRN, C.N.P. [address] [place] [address] [facility] Region Referral ID Status Reason Start Date Expiration Date V isits Requested Visits Authorized [id number] Authorized 04/10/2023 04/09/2024 1 1 STIGATION MANAGER Encounter Details Date Type Department Care Team (Late st Contact Info) Description 04/10/2023 Orders Only [facility] PCP [facility] MNT Roxanna Burnett, CHILDREN'S TUTOR NURSERY, C.N.P. [address] [place] [phone] Screening Lipid; Screening Mammogram Breast Cancer Social [...] often do you attend chur ch or methodist services? Never 06/01/2021 Do you belong to any clubs o r organizations such as episcopalian groups, unions, fraternal or athletic groups, or [...] Answer Date Recorded PHQ-2 Score 0 01/06/2022 [facility] of Occupat ional Health - [...] place to sleep or slept in a retirement (including now)? Yes 06/01/2021 Depression Answer Date [...] Sex Assigned at Female 05/01/2018 3:00 PM INVESTIGATION MANAGER Gender Identity Female 05/01/2018 3:00 PM INVESTIGATION MANAGER Sexual Orientation Straight 05/17/2020 9: 58 PM [...] documented as of this encounter Care Teams Epidemiology Intern Relationship Specialty Start Date End Date Roxanna Burnett APRN, C.N.P. [address] [place] [phone] PCP - General Family Medicine 01/05/22 04/10/23 documented as of this encounter
--- OUTSIDE RECORDS SUMMARY | 2023-04-23 16:24 | XMS_ITS ---
Author Name Unknown Organization [facility] Address [address] [place] [address] Care Team Providers Care Order To Delivery Supervisor Name Role Phone Unavailable Unavailable Unavailable Surgery Details Not on file Complications Check Surgery Details section. Procedure Estimated Blood Loss Check Surgery Details section. Procedure Findings Check Surgery Details section. Procedure Specimens Taken Check Surgery Details section.
--- OUTSIDE RECORDS SUMMARY | 2023-04-23 16:25 | XMS_ITS | Encounter Summary ---
Author Name Unknown Organization [facility] Address [address] [place] [address] Care Team Providers Care Christian Science Practitioner Name Role Phone Roxanna Burnett APRN, C.N.P. [...] Expiration Date Visits Re quested Visits Authorized [id number] Closed 06/07/2022 06/07/2023 1 1 Encounter Details Date Type Department Care Team (Late Contact Info) Description 06/07/2022 2:00 PM CDT Office Visit Department of Family Medicine in [place], [place] [address] [place] [phone] Renetta Hansen APRN, C.N.P. [address] [place] [phone] Nicotine Dependence Cigarettes (Primary Dx); Depression Major [...] How often do you attend chur or tenriism services? Never 06/01/2021 Do you belong to any clubs o r organizations such as baptist groups, unions, fraternal or athletic groups, or [...] Answer Date Recorded PHQ-2 Score 0 01/06/2022 [facility] of Occupat ional Health - Occupational Stress [...] place to sleep or slept in a correction (including now)? Yes 06/01/2021 Depression Answer Date [...] Sex Assigned at Female 05/01/2018 3:00 PM PHYSIOLOGIST Gender Identity Female 05/01/2018 3:00 PM PHYSIOLOGIST Sexual Orientation Straight 05/17/2020 9: 58 PM [...] documented as of this encounter Care Teams Christian Science Practitioner Relationship Specialty Start Date End Date Roxanna Burnett APRN, [place] [address] PCP - General Family Medicine 01/05/22 04/10/23 documented as of this encounter
--- OUTSIDE RECORDS SUMMARY | 2023-04-23 16:25 | XMS_ITS | Encounter Summary ---
Author Name Unknown Organization [facility] Address [address] [place] [address] Care Team Providers Care Insurance Agency Sales Manager Name Role Phone Roxanna Burnett APRN, C.N.P. Primary Care Provide r Encounter Details Date Type Department Care Team (Late st Contact Info) Description 07/27/2022 Orders Only [facility] P[facility] HL[facility] MNT Roxanna Burnett, KEERTHI, C.N.P. [address] [place] [address] Screening Mammogram Breast Cancer Social [...] often do you attend chur ch or roman catholic services? Never 06/01/2021 Do you belong to any clubs o r organizations such as yarsanism groups, unions, fraternal or athletic groups, or [...] Answer Date Recorded PHQ-2 Score 0 01/06/2022 [facility] of Occupat ional Health - Occupational [...] place to sleep or slept in a halfway (including now)? Yes 06/01/2021 Depression Answer Date [...] Sex Assigned at Female 05/01/2018 3:00 PM DIRECTOR OF AVIATION Gender Identity Female 05/01/2018 3:00 PM DIRECTOR OF AVIATION Sexual Orientation Straight 05/17/2020 9: 58 PM CDT documented as of this encounter Plan of Treatment Not on file documented as of this encounter Visit Diagnoses Diagnosis Screening Mammogram Breast Cancer documented in this encounter Additional Health Concerns Assessment Noted Time PHQ-9 Depression Total Score: 0 01/07/20 22 4:13 PM CDT documented as of this encounter Care Teams Insurance Agency Sales Manager Relationship Specialty Start Date End Date Roxanna Burnett APRN, C.N.P. [address] [place] [phone] PCP - General Family Medicine 01/05/22 04/10/23 documented as of this encounter
--- OUTSIDE RECORDS SUMMARY | 2023-04-23 16:25 | XMS_ITS | Encounter Summary ---
Author Name Unknown Organization [facility] Address [address] [place] [address] Care Team Providers Care Lung Gun Operator Name Role Phone Roxanna Burnett APRN, C.N.P. Primary Care Provide r Reason for Visit * Reason Onset Date Comments Disability Form 04/26/2022 Encounter Details Date Type Department Care Team (Latest Contact Info) Description 04/26/2022 Clinical Communication Department of Physical Medicine and Rehabilitation in [place], [place] [address] [place] [address] Jatin Escamilla M.D. [address] [place] [phone] Disability Form Social History Tobacco Use Types [...] How often do you attend chur or synagogue services? Never 06/01/2021 Do you belong to any clubs o r organizations such as episcopal groups, unions, fraternal or athletic groups, or [...] Answer Date Recorded PHQ-2 Score 0 01/06/2022 [facility] Occupational Stress Questionnaire Answer [...] place to sleep or slept in a [place] health care facility (including now)? Yes 06/01/2021 Depression Answer Date [...] Sex Assigned at Female 05/01/2018 3:00 PM GROUND SUPPORT EQUIPMENT ASSEMBLER Gender Identity Female 05/01/2018 3:00 PM GROUND SUPPORT EQUIPMENT ASSEMBLER Sexual Orientation Straight 05/17/2020 9: 58 PM CDT documented as of this encounter Miscellaneous Notes * Telephone Encounter - Tatiana Gay Js - 04/26/2022 9:12 AM CST PROVIDER'S NAME: Dr. Escamilla CALLER'S NAME: Tracey Kim at [employer] WHAT IS THE CALL REGARDING? Reason for the Call: Tracey has a disability form for the patient and was wondering if Dr. Segura fill it out. Details/Desired Outcome: Disability form filled out. Additional Comments: I have given her our fax number, please keep an eye out for the form. Please call her if you have any questions. Tracey Kim's Direct [employer] General Office Number: [phone] [employer] PATIENT OR CALLER'S PHONE NUMBER: [phone] [place] SUPPORT EQUIPMENT ASSEMBLER documented in this encounter Plan of Treatment Not on file documented as of this encounter Visit Diagnoses Not on filedocumented in this encounter Additional Health Concerns Assessment Noted Time PHQ-9 Depression Total Score: 0 01/07/20 22 4:13 PM CDT documented as of this encounter Care Teams Lung Gun Operator Relationship Specialty Start Date End Date Roxanna Burnett APRN, C.N.P. [address] [place] [phone] PCP - General Family Medicine 01/05/22 04/10/23 documented as of this encounter
--- OUTSIDE RECORDS SUMMARY | 2023-04-23 16:25 | XMS_ITS | Encounter Summary ---
Author Name Unknown Organization [facility] Address [address] [place] [address] Care Team Providers Care Transmission Maintenance Supervisor Name Role Phone Roxanna Burnett APRN, C.N.P. Primary Care Provide r Reason for Visit * Reason Comments Rash On buttocks; spreadi ng. 1 wk Vaginitis/Bacterial Vaginosis X 2 d. Odo r and some itching Encounter Details Date Type Department Care Team (Late st Contact Info) Description 03/01/2023 6:30 PM DIGITAL MARKETING OFFICER Office Visit Urgent Care, [facility], in [place], [place] [address] [place] [address] Zaida Batres APRN, C.N.P., D.N.P. [...] often do you attend chur ch or mandaeism services? Never 06/01/2021 Do you belong to any clubs o r organizations such as jehovah's witness groups, unions, fraternal or athletic groups, or [...] Answer Date Recorded PHQ-2 Score 0 01/06/2022 [facility] of Occupat ional Health - Occupational Stress [...] Sex Assigned at Female 05/01/2018 3:00 PM DIGITAL MARKETING OFFICER Gender Identity Female 05/01/2018 3:00 PM DIGITAL MARKETING OFFICER Sexual Orientation Straight 05/17/2020 9: 58 PM CDT documented as of this encounter Last Filed Vital Signs Vital Sign Reading Time Taken Comments Blood Pressure 147/98 03/01/2023 5:49 PM DIGITAL MARKETING OFFICER Pulse - - Temperature 36.8 ??C (98.2 ??F) 03/01/2023 5:45 PM CS T Respiratory Rate 20 03/01/2023 5:45 PM DIGITAL MARKETING OFFICER Oxygen Saturation 97% 03/01/2023 5:45 PM DIGITAL MARKETING OFFICER Inhaled Oxygen Concentration - - Weight 79 kg (174 lb 2.6 oz) 03/01/2023 5:45 PM DIGITAL MARKETING OFFICER Height - - Body Mass Index 24.11 01/06/2022 4:12 PM CDT documented in this encounter Progress Notes * Zaida Batres, KEERTIH, C.N.P., D.N.P. - 03/01/2023 6:30 PM CST [...] done over the next 3 days and lobster fisherman sample collection discussed with patient. For any [...] by: Zaida Batres APRN, C.N.P., D.N.P. 03/01/23 TAL MARKETING OFFICER documented in this encounter Miscellaneous Notes * Addendum Note - Zaida Batres APRN, C.N.P., D.N.P. - 03/01/2023 6:30 PM DIGITAL MARKETING OFFICER Addended by: ZAIDA BATRES on: 03/01/2023 07:32 PM Modules accepted: Orders, Level of Service TAL MARKETING OFFICER documented in this encounter Plan of Treatment Not on file documented as of this encounter Procedures Procedure Name Priority Date/Time Associated Diagnosis Comments VAGINITIS PANEL STAT 03/01/2023 6:22 PM DIGITAL MARKETING OFFICER Pruritus Vagina BACTERIAL CULTURE, AEROBIC + SUSC STAT 03/01/2023 6:22 PM DIGITAL MARKETING OFFICER Pruritus Ani documented in this encounter Results * (ABNORMAL) Vaginitis Panel (03/01/2023 6:22 PM DIGITAL MARKETING OFFICER) Mayra species, DNA Negative Negative 03/01/2023 7:15 PM DIGITAL MARKETING OFFICER NPRG Gardnerella vaginalis, DNA Positive(A) Negative 03/01/2023 7:15 PM DIGITAL MARKETING OFFICER NPRG Trichomonas vaginalis, DNA Negative Negative 03/01/2023 7:15 PM DIGITAL MARKETING OFFICER NPRG Swab (Vagina) 03/01/2023 6:2 2 PM DIGITAL MARKETING OFFICER 03/01/2023 6:28 PM DIGITAL MARKETING OFFICER Fuad Ma APRN.N.P., D.N.P. LAB M [employer] [facility] ORDERABLES Performing Organization Address City/[facility]/ZIP Co de Phone Number [facility] [address] [place] [address], [facility] NPRG [address] [address] * Bacterial Culture, Aerobic + Susceptibility (03/01/2023 6:22 PM DIGITAL MARKETING OFFICER) Bacterial Culture, Aerobic + Susc Usual microbiota 03/04/2023 9:58 AM DIGITAL MARKETING OFFICER MKTO Swab (Anus) 03/01/2023 6:22 PM DIGITAL MARKETING OFFICER 03/01/2023 10:13 PM DIGITAL MARKETING OFFICER Comment:Specimen Source Site : Swab Fuad Ma APRN.N.P., D.N.P. LAB M ICROBIOLOGY - GENERAL ORDERABLES [facility] [address] [place] [address], [facility] MKTO [facility] [place] [address] [place] [address] documented in this encounter Visit Diagnoses Diagnosis Pruritus Ani- Primary Pruritus Vagina Diarrhea Vaginosis Bacterial documented in this encounter Additional Health Concerns Assessment Noted Time PHQ-9 Depression Total Score: 0 01/07/20 22 4:13 PM CDT documented as of this encounter Care Teams Transmission Maintenance Supervisor Relationship Specialty Start Date End Date Roxanna Burnett APRN, C.N.P. [address] [place] [address] PCP - General Family Medicine 01/05/22 04/10/23 documented as of this encounter
--- NOTE | 2023-04-23 16:55 | CT_ITS ---
Patient: MITCHELL MCPHERSON Facility:?[facility] RIS Patient ID:?[id number] Site Patient ID:?[id number]. Site :?[id number] Study:?CT-Abdomen/Pelvis 83CC ISOVUE 370-04/23/2023 5:31:10 PM Ordering Physician:MUKUL Final Report: INDICATION: Fever, positive blood culture, weak. TECHNIQUE: CT abdomen and pelvis acquired with 83 cc Isovue 370 IV contrast. COMPARISON: None. FINDINGS: Lower chest: Mild atelectasis in the lower lobes. Liver: Small cyst within the right hepatic lobe. Too small to characterize hypodensity within the dome of the liver. Normal size and contour. Gallbladder and bile ducts: Unremarkable. No stones or inflammation. No biliary dilatation. Pancreas: Unremarkable. No mass or inflammation. Spleen: Unremarkable. Normal in size. No masses. Adrenal glands: Unremarkable. No nodules. Kidneys: Patchy ill-defined areas of hypodensity within the renal cortices, right greater than left. No hydronephrosis or stone. Mild right perinephric stranding. GI tract: Unremarkable. Normal in caliber. No sign of mass or inflammation. Vasculature: Normal caliber abdominal aorta with mild atherosclerotic calcification. Mesenteric arteries are patent. Lymph nodes: No lymphadenopathy. Peritoneum/Abdominal Wall: Unremarkable. No sign of mass or infiltration. No free air or significant free fluid. Pelvis: Unremarkable. Bones: Moderate to advanced multilevel lower lumbar spondylosis. No aggressive osseous lesion or acute findings. IMPRESSION: Patchy ill-defined areas of hypodensity within the renal cortices, right greater than left, suspicious for pyelonephritis. Recommend correlation with urinalysis. No evidence for renal abscess formation. Please note that all CT scans at this facility use dose modulation, iterative reconstruction, and/or weight-based dosing when appropriate to reduce radiation dose to as low as reasonably achievable. Dictated by Alfonso Nichole MD @ 04/23/2023 6:53:29 PM Signed by:?Alfonso Nichole MD @04/23/2023 6:53:29 PM (Electronic Signature)
[2023-04-23 16:57] LABS: Slide Review Reflex No
[2023-04-23] MEDS: 0.9 % SODIUM CHLORIDE 1000 ml 1,000 ML IV (18:20)
[2023-04-23] MEDS: ACETAMINOPHEN 500 MG TABLET 1000 MG PO (18:25)
--- NOTE | 2023-04-23 18:28 | ED.NURSE ---
Pt oral temp rechecked, 103.1F. notified, Tylenol ordered. Pt to the bathroom via wheelchair, UA collected. Pt nauseated after Tylenol admin, vomited small amount of clear emesis into bag. No pills visible in emesis. notified, Zofran ordered.
[2023-04-23 18:29] LABS: Appearance Urine Cloudy (Clear); Bilirubin Urine Negative (Negative); Blood Urine 2+ (Negative); Color Urine Amber (Yellow); Glucose Urine Negative (Negative); Ketones Urine Negative (Negative); Leukocyte Esterase Urine Trace (Negative); Nitrite Urine Positive (Negative); Protein Urine 2+ (Negative); Specific Gravity Urine 1.015 (1.000-1.030)
[2023-04-23] MEDS: ONDANSETRON 2 MG/ML inj 4 MG IVP (18:33)
[2023-04-23 18:39] LABS: Amphetamine Screen Urine POSITIVE (Negative); Barbiturate Screen Urine Negative (Negative); Benzodiazepines Screen Urine Negative (Negative); Cannabinoid Screen Urine POSITIVE (Negative); Cocaine Screen Urine Negative (Negative); Methadone Screen Urine Negative (Negative); Methamphetamines Screen Urine POSITIVE (Negative); Opiate Screen Urine Negative (Negative); Oxycodone Screen Urine Negative (Negative); Phencyclidine Screen Urine Negative (Negative); Tricyclic Antidepressant Urine Negative (Negative)
[2023-04-23 18:57] LABS: Bacteria Urine Few; RBC Urine 0-2 (0-2)
--- NOTE | 2023-04-23 19:12 | ED.NURSE ---
Pt eloped from room and attempted to exit ER. Java Development Manager requested that pt show that her IV was removed, pt did show that she had self-removed her IV. Java Development Manager recommended to pt that she stay for treatment or sign AMA form. Pt declined to stay for treatment or sign out AMA and left the unit in a hurry. MD Whalen and Security notified. Per Security, pt quickly got into her vehicle and left the property.
== END 2023-04-23 19:21 | disposition left against medical advice (07) ==
PROVIDERS: Emergency Provider Emergency Medicine Emergency Medical Services; PCP Family Medicine
DX: R50.9 Fever, unspecified (principal)
CPT/HCPCS: 36415; 74177; 80306; 81001; 83605; 85025; 87040; 87086; 96365; 96366; 96375; 99284; A9270; J1836; J2405; J2543; J7030; Q9967

== ENCOUNTER 2023-04-24 07:25 | Outpatient (CLI) | payer BC, SELFPAY | END 2023-04-24 07:26 | disposition home or self-care (01) | LOC: AMB 05-03 03:29 | PROVIDERS: PCP Family Medicine; Visit Provider Family Medicine | DX: R51.9 Headache, unspecified (principal) | CPT/HCPCS: A0425; A0429 ==

== ENCOUNTER 2023-04-24 07:47 | Inpatient (IN) | payer BC, SELFPAY ==
[2023-04-24] VITALS (23 sets, daily range): BP systolic 99–125; BP diastolic 60–84; PULSE 66–99; RESP 16–22; TEMP 35.6–37.9; O2SAT 91–99; BMI 24.4
--- OUTSIDE RECORDS SUMMARY | 2023-04-24 08:25 | XMS_ITS ---
Author Name Unknown Organization [facility] Address [address] [place] [address] Care Team Providers Care Engine Wiper Name Role Phone Unavailable Unavailable Unavailable Surgery Details Not on file Complications Check Surgery Details section. Procedure Estimated Blood Loss Check Surgery Details section. Procedure Findings Check Surgery Details section. Procedure Specimens Taken Check Surgery Details section.
--- OUTSIDE RECORDS SUMMARY | 2023-04-24 08:25 | XMS_ITS | Encounter Summary ---
Author Name Unknown Organization [facility] Address [address] [place] [address] Care Team Providers Care Java Sql Developer Name Role Phone Roxanna Burnett APRN, C.N.P. Primary Care Provide r Encounter Details Date Type Department Care Team (Late st Contact Info) Description 07/27/2022 Orders Only [facility] MNT Roxanna Burnett, KEERTHI, C.N.P. [address] [place] [address] Screening Mammogram Breast Cancer Social [...] often do you attend chur ch or buddhist services? Never 06/01/2021 Do you belong to any clubs o r organizations such as buddhism groups, unions, fraternal or athletic groups, or [...] Answer Date Recorded PHQ-2 Score 0 01/06/2022 [facility] Occupat ional Health - [...] Sex Assigned at Female 05/01/2018 3:00 PM CUSTOMER CONSULTANT Gender Identity Female 05/01/2018 3:00 PM CUSTOMER CONSULTANT Sexual Orientation Straight 05/17/2020 9: 58 PM CDT documented as of this encounter Plan of Treatment Not on file documented as of this encounter Visit Diagnoses Diagnosis Screening Mammogram Breast Cancer documented in this encounter Additional Health Concerns Assessment Noted Time PHQ-9 Depression Total Score: 0 01/07/20 22 4:13 PM CDT documented as of this encounter Care Teams Java Sql Developer Relationship Specialty Start Date End Date Roxanna Burnett APRN, C.N.P. [address] [place] [address] PCP - General Family Medicine 01/05/22 04/10/23 documented as of this encounter
--- OUTSIDE RECORDS SUMMARY | 2023-04-24 08:25 | XMS_ITS | Referral Summary ---
Author Name Unknown Organization [facility] Address [address] [place] [address] Care Team Providers Care Green Chain Marker Name Role Phone Elsewhere, Pcp Primary Care Provider Unavailabl e Source Comments Patient records contain information from all sites at [facility]. For routine questions regarding patient records, call [phone] during business hours, M-F 8:00 AM - 5:00 PM Central Time. Record requests for emergency care only can be directed to [phone] at any time[address] Encounters Date Type Department Care Team Description 04/10/2023 Orders Only [facility] MNT Roxanna Burnett APRN, C.N.P. Screening Lipid; Screening Mammogram Breast Cancer 03/01/2023 6:30 PM GREEN BUILDING ENGINEER Office Visit Urgent Care, [facility], in [place], [place] [address] [place] [address] Zaida Ragland APRN, C.N.P., D.N.P. [...] often do you attend chur ch or gnosticism services? Never 06/01/2021 Do you belong to [...] Answer Date Recorded PHQ-2 Score 0 01/06/2022 [facility] of Occupat ional Health - Occupational [...] place to sleep or slept in a fci (including now)? Yes 06/01/2021 Depression Answer Date [...] Sex Assigned at Female 05/01/2018 3:00 PM GREEN BUILDING ENGINEER Gender Identity Female 05/01/2018 3:00 PM GREEN BUILDING ENGINEER Sexual Orientation Straight 05/17/2020 9: 58 PM CDT Last Filed Vital Signs Vital Sign Reading Time Taken Comments Blood Pressure 147/98 03/01/2023 5:49 PM GREEN BUILDING ENGINEER Pulse 73 06/07/2022 1:49 PM CDT Temperature 36.8 ??C (98.2 ??F) 03/01/2023 5:45 PM CS T Respiratory Rate 20 03/01/2023 5:45 PM GREEN BUILDING ENGINEER Oxygen Saturation 97% 03/01/2023 5:45 PM GREEN BUILDING ENGINEER Inhaled Oxygen Concentration - - Weight 79 kg (174 lb 2.6 oz) 03/01/2023 5:45 PM GREEN BUILDING ENGINEER Height 181 cm (5' 11.26) 01/06/2022 4:12 PM CDT Body Mass Index 24.11 01/06/2022 4:12 PM CDT Plan of Treatment Not on file Medical Devices Implanted Type Area Oxide Furnace Tender Device Identifier Shelf Expiration Date Model / Serial / Lot 3.5 Mm Cortex Screw Self Tapping 20mm Implanted:Qty: 1 on 05/04/2020 by Pritesh Gagnon M.D. at [employer] Ankle Implant Depuy Synthes 204. 820 / 204.820 / Scrw Lcp St Lck Lp 3.5x16 - [id number] Implanted:Qty: 3 on 05/04/2020 by Pritesh Gagnon M.D. at [employer] Hardware e.g. pins/screws/r ods Depuy Synthes 212.104 / / Procedures Procedure Name Priority Date/Time Associated Diagnosis Comments BACTERIAL CULTURE, AEROBIC + SUSC STAT 03/01/2023 6:22 PM GREEN BUILDING ENGINEER Pruritus Ani VAGINITIS PANEL STAT 03/01/2023 6:22 PM GREEN BUILDING ENGINEER Pruritus Vagina from Last 3 Months Results * (ABNORMAL) Vaginitis Panel (03/01/2023 6:22 PM GREEN BUILDING ENGINEER) Mayra species, DNA Negative Negative 03/01/2023 7:15 PM GREEN BUILDING ENGINEER NPRG Gardnerella vaginalis, DNA Positive(A) Negative 03/01/2023 7:15 PM GREEN BUILDING ENGINEER NPRG Trichomonas vaginalis, DNA Negative Negative 03/01/2023 7:15 PM GREEN BUILDING ENGINEER NPRG Swab (Vagina) 03/01/2023 6:2 2 PM GREEN BUILDING ENGINEER 03/01/2023 6:28 PM GREEN BUILDING ENGINEER Fuad Ma APRN.N.P., D.N.P. LAB M ICROBIOLOGY - GENERAL ORDERABLES [facility] [address] [place] [address], [place] NPRG [facility] [address] [place] [address] * Bacterial Culture, Aerobic + Susceptibility (03/01/2023 6:22 PM GREEN BUILDING ENGINEER) Bacterial Culture, Aerobic + Susc Usual microbiota 03/04/2023 9:58 AM GREEN BUILDING ENGINEER MKTO Swab (Anus) 03/01/2023 6:22 PM GREEN BUILDING ENGINEER 03/01/2023 10:13 PM GREEN BUILDING ENGINEER Comment:Specimen Source Site : Swab Nydia Ma APRNNPaulPPaul, D.N.PPaul LAB M ICROBIOLOGY - GENERAL ORDERABLES [facility] [address] [place] [address], [place] MKTO [facility] [place] [address] [place] [address] from Last 3 Months Advance Directives For more information, please contact: [phone] Latest Code Status on File Code Status Date Activated Date Inactivated Comments Full Code 01/12/2020 12:25 AM 01/13/2020 6:16 PM Question Answer Comments Full Code: Not Discussed Due to: Patient does not have the capaci ty Suicidal Care Teams Green Chain Marker Relationship Specialty Start Date End Date Elsewhere, Pcp PCP - General Internal Medicine 04/11/23
--- OUTSIDE RECORDS SUMMARY | 2023-04-24 08:25 | XMS_ITS | Clinical Summary ---
Author Name Unknown Organization [facility] Address [address] [place] [address] Care Team Providers Care Field Support Engineer Name Role Phone Elsewhere, Pcp Primary Care Provider Unavailabl e Source Comments Patient records contain information from all sites at [facility]. For routine questions regarding patient records, call [phone] during business hours, M-F 8:00 AM - 5:00 PM Central Time. Record requests for emergency care only can be directed to [phone] at any time.[facility] Allergies Active Allergy Reactions Criticality Noted Date [...] Screening Mammogram Breast Cancer 03/01/2023 6:30 PM CHIEF CLERK SHELTER Office Visit Urgent Care, [facility], in [place] [address] [place] [phone] Zaida Ragland APRN, C.N.P., D.N.P. Pruritus Ani [...] How often do you attend chur or mandaeism services? Never 06/01/2021 Do you belong to any clubs o r organizations such as synagogue groups, unions, fraternal or athletic groups, or [...] Answer Date Recorded PHQ-2 Score 0 01/06/2022 [facility] of Occupat ional Health - Occupational [...] place to sleep or slept in a mcc (including now)? Yes 06/01/2021 Depression Answer Date [...] Sex Assigned at Female 05/01/2018 3:00 PM CHIEF CLERK SHELTER Gender Identity Female 05/01/2018 3:00 PM CHIEF CLERK SHELTER Sexual Orientation Straight 05/17/2020 9: 58 PM CDT Last Filed Vital Signs Vital Sign Reading Time Taken Comments Blood Pressure 147/98 03/01/2023 5:49 PM CHIEF CLERK SHELTER Pulse 73 06/07/2022 1:49 PM CDT Temperature 36.8 ??C (98.2 ??F) 03/01/2023 5:45 PM CS T Respiratory Rate 20 03/01/2023 5:45 PM CHIEF CLERK SHELTER Oxygen Saturation 97% 03/01/2023 5:45 PM CHIEF CLERK SHELTER Inhaled Oxygen Concentration - - Weight 79 kg (174 lb 2.6 oz) 03/01/2023 5:45 PM CHIEF CLERK SHELTER Height 181 cm (5' 11.26) 01/06/2022 4:12 [...] this topic Medical Devices Implanted Type Area Grocery Manager Device Identifier Shelf Expiration Date Model / Serial / Lot 3.5 Mm Cortex Screw Self Tapping 20mm Implanted:Qty: 1 on 05/04/2020 by Pritesh Gagnon M.D. at [facility] Ankle Implant Depuy Synthes 204. 820 / 204.820 / Scrw Lcp St Lck Lp 3.5x16 - [id number] Implanted:Qty: 3 on 05/04/2020 by Pritesh Gagnon M.D. at [facility] Hardware e.g. pins/screws/r ods Depuy Synthes 212.104 / / Procedures Procedure Name Priority Date/Time Associated Diagnosis Comments BACTERIAL CULTURE, AEROBIC + SUSC STAT 03/01/2023 6:22 PM CHIEF CLERK SHELTER Pruritus Ani VAGINITIS PANEL STAT 03/01/2023 6:22 PM CHIEF CLERK SHELTER Pruritus Vagina from Last 3 Months Results * (ABNORMAL) Vaginitis Panel (03/01/2023 6:22 PM CHIEF CLERK SHELTER) Mayra species, DNA Negative Negative 03/01/2023 7:15 PM CHIEF CLERK SHELTER NPRG Gardnerella vaginalis, DNA Positive(A) Negative 03/01/2023 7:15 PM CHIEF CLERK SHELTER NPRG Trichomonas vaginalis, DNA Negative Negative 03/01/2023 7:15 PM CHIEF CLERK SHELTER NPRG Swab (Vagina) 03/01/2023 6:2 2 PM CHIEF CLERK SHELTER 03/01/2023 6:28 PM CHIEF CLERK SHELTER Nydia Ma APRNN.Carol, D.N.P. LAB M [facility] ORDERABLES [facility] [address] [place] [address], [facility] NPRG [facility] [address] [place] [address] * Bacterial Culture, Aerobic + Susceptibility (03/01/2023 6:22 PM CHIEF CLERK SHELTER) Bacterial Culture, Aerobic + Susc Usual microbiota 03/04/2023 9:58 AM CHIEF CLERK SHELTER MKTO Swab (Anus) 03/01/2023 6:22 PM CHIEF CLERK SHELTER 03/01/2023 10:13 PM CHIEF CLERK SHELTER Comment:Specimen Source Site : Swab Fuad Ma APRN.N.PPaul, D.N.P. LAB M ICROBIOLOGY - GENERAL ORDERABLES [facility] [address] [place] [address], [place] MKTO [facility] [place] [address] [place] [address] from Last 3 Months Advance Directives For more information, please contact: [phone] Latest Code Status on File Code Status Date Activated Date Inactivated Comments Full Code 01/12/2020 12:25 AM 01/13/2020 6:16 PM Question Answer Comments Full Code: Not Discussed Due to: Patient does not have the capaci ty Suicidal Care Teams Field Support Engineer Relationship Specialty Start Date End Date Elsewhere, Pcp PCP - General Internal Medicine 04/11/23
--- OUTSIDE RECORDS SUMMARY | 2023-04-24 08:25 | XMS_ITS | Encounter Summary ---
Author Name Unknown Organization [facility] Address [address] [place] [address] Care Team Providers Care Radiology Scheduler Name Role Phone Roxanna Burnett APRN, C.N.P. [...] Expiration Date Visits Re quested Visits Authorized [id number] Closed 06/07/2022 06/07/2023 1 1 Encounter Details Date Type Department Care Team (Late Contact Info) Description 06/07/2022 2:00 PM CDT Office Visit Department of Family Medicine in [place], [place] [address] [place] [phone] Renetta Hansen APRN, C.N.P. [address] [place] [phone] Nicotine Dependence Cigarettes (Primary Dx); Depression Major [...] How often do you attend chur or samaritan services? Never 06/01/2021 Do you belong to any clubs o r organizations such as lutheran groups, unions, fraternal or athletic groups, or [...] Answer Date Recorded PHQ-2 Score 0 01/06/2022 [facility] of Occupat ional Health - Occupational [...] Sex Assigned at Female 05/01/2018 3:00 PM CLERK TELEGRAPH SERVICE Gender Identity Female 05/01/2018 3:00 PM CLERK TELEGRAPH SERVICE Sexual Orientation Straight 05/17/2020 9: 58 PM [...] documented as of this encounter Care Teams Radiology Scheduler Relationship Specialty Start Date End Date Roxanna Burnett APRN, [place] [address] PCP - General Family Medicine 01/05/22 04/10/23 documented as of this encounter
--- OUTSIDE RECORDS SUMMARY | 2023-04-24 08:25 | XMS_ITS | Encounter Summary ---
Author Name Unknown Organization [facility] Address [address] [place] [address] Care Team Providers Care Register Repairer Name Role Phone Roxanna Burnett APRN, C.N.P. Primary Care Provide r Reason for Visit * Reason Comments Rash On buttocks; spreadi ng. 1 wk Vaginitis/Bacterial Vaginosis X 2 d. Odo r and some itching Encounter Details Date Type Department Care Team (Late st Contact Info) Description 03/01/2023 6:30 PM SALES AND MARKETING ENGINEER Office Visit Urgent Care, [facility], in [place], [place] [address] [place] [address] Zaida Batres APRN, C.N.P., D.N.P. [...] often do you attend chur ch or taoist services? Never 06/01/2021 Do you belong to any clubs o r organizations such as yarsani groups, unions, fraternal or athletic groups, or [...] Answer Date Recorded PHQ-2 Score 0 01/06/2022 [facility] of Occupat ional Health - Occupational Stress [...] place to sleep or slept in a skilled nursing (including now)? Yes 06/01/2021 Depression Answer Date [...] Sex Assigned at Female 05/01/2018 3:00 PM SALES AND MARKETING ENGINEER Gender Identity Female 05/01/2018 3:00 PM SALES AND MARKETING ENGINEER Sexual Orientation Straight 05/17/2020 9: 58 PM CDT documented as of this encounter Last Filed Vital Signs Vital Sign Reading Time Taken Comments Blood Pressure 147/98 03/01/2023 5:49 PM SALES AND MARKETING ENGINEER Pulse - - Temperature 36.8 ??C (98.2 ??F) 03/01/2023 5:45 PM CS T Respiratory Rate 20 03/01/2023 5:45 PM SALES AND MARKETING ENGINEER Oxygen Saturation 97% 03/01/2023 5:45 PM SALES AND MARKETING ENGINEER Inhaled Oxygen Concentration - - Weight 79 kg (174 lb 2.6 oz) 03/01/2023 5:45 PM SALES AND MARKETING ENGINEER Height - - Body Mass Index [...] done over the next 3 days and vascular physician sample collection discussed with patient. For any [...] by: Zaida Batres APRN, C.N.P., D.N.P. 03/01/23 S AND MARKETING ENGINEER documented in this encounter Miscellaneous Notes * Addendum Note - Zaida Batres APRN, C.N.P., D.N.P. - 03/01/2023 6:30 PM SALES AND MARKETING ENGINEER Addended by: ZAIDA BATRES on: 03/01/2023 07:32 PM Modules accepted: Orders, Level of Service S AND MARKETING ENGINEER documented in this encounter Plan of Treatment Not on file documented as of this encounter Procedures Procedure Name Priority Date/Time Associated Diagnosis Comments VAGINITIS PANEL STAT 03/01/2023 6:22 PM SALES AND MARKETING ENGINEER Pruritus Vagina BACTERIAL CULTURE, AEROBIC + SUSC STAT 03/01/2023 6:22 PM SALES AND MARKETING ENGINEER Pruritus Ani documented in this encounter Results * (ABNORMAL) Vaginitis Panel (03/01/2023 6:22 PM SALES AND MARKETING ENGINEER) Mayra species, DNA Negative Negative 03/01/2023 7:15 PM SALES AND MARKETING ENGINEER NPRG Gardnerella vaginalis, DNA Positive(A) Negative 03/01/2023 7:15 PM SALES AND MARKETING ENGINEER NPRG Trichomonas vaginalis, DNA Negative Negative 03/01/2023 7:15 PM SALES AND MARKETING ENGINEER NPRG Swab (Vagina) 03/01/2023 6:2 2 PM SALES AND MARKETING ENGINEER 03/01/2023 6:28 PM SALES AND MARKETING ENGINEER Fuad Ma APRN.N.P., D.N.P. LAB M [email or web address] ORDERABLES Performing Organization Address City/[facility]/ZIP Co de Phone Number [facility] [address] [place] [address], [facility] NPRG [address] [address] * Bacterial Culture, Aerobic + Susceptibility (03/01/2023 6:22 PM SALES AND MARKETING ENGINEER) Bacterial Culture, Aerobic + Susc Usual microbiota 03/04/2023 9:58 AM SALES AND MARKETING ENGINEER MKTO Swab (Anus) 03/01/2023 6:22 PM SALES AND MARKETING ENGINEER 03/01/2023 10:13 PM SALES AND MARKETING ENGINEER Comment:Specimen Source Site : Swab Fuad Ma APRN.N.P., D.N.P. LAB M ICROBIOLOGY - GENERAL ORDERABLES [facility] [address] [place] [address], [facility] MKTO [facility] [place] [address] [place] [address] documented in this encounter Visit Diagnoses Diagnosis Pruritus Ani- Primary Pruritus Vagina Diarrhea Vaginosis Bacterial documented in this encounter Additional Health Concerns Assessment Noted Time PHQ-9 Depression Total Score: 0 01/07/20 22 4:13 PM CDT documented as of this encounter Care Teams Register Repairer Relationship Specialty Start Date End Date Roxanna Burnett APRN, C.N.P. [address] [place] [phone] PCP - General Family Medicine 01/05/22 04/10/23 documented as of this encounter
--- OUTSIDE RECORDS SUMMARY | 2023-04-24 08:25 | XMS_ITS | Encounter Summary ---
Author Name Unknown Organization [facility] Address [address] [place] [address] Care Team Providers Care Turn Out Name Role Phone Roxanna Burnett APRN, C.N.P. Primary Care Provide r Reason for Referral * Outpatient (Routine) - Authorized Specialty Diagnoses / Procedures Referred By Duc castillo Referred To Contact Family Medicine Roxanna Burnett APRN, C.N.P. [address] [place] [address] [facility] Region Referral ID Status Reason Start Date Expiration Date V isits Requested Visits Authorized [id number] Authorized 04/10/2023 10/09/2024 1 1 RIBUTION OPERATION SUPERVISOR * Outpatient (Routine) - Authorized Specialty Diagnoses / Procedures Referred By Duc castillo Referred To Contact Diagnoses Screening Mammogram Breast Cancer Procedures BI Breast Screening Bilateral with Tomosynthesis Roxanna Burnett APRN, C.N.P. [address] [place] [address] [facility] Region Referral ID Status Reason Start Date Expiration Date V isits Requested Visits Authorized [id number] Authorized 04/10/2023 04/09/2024 1 1 RIBUTION OPERATION SUPERVISOR Encounter Details Date Type Department Care Team (Late st Contact Info) Description 04/10/2023 Orders Only [facility] P[facility] MNT Roxanna Burnett, CLERICAL OFFICE, C.N.P. [address] [place] [phone] Screening Lipid; Screening Mammogram Breast Cancer Social [...] any clubs o r organizations such as gnosticism groups, unions, fraternal or athletic groups, or [...] Answer Date Recorded PHQ-2 Score 0 01/06/2022 [facility] of Occupat ional Health - Occupational [...] Sex Assigned at Female 05/01/2018 3:00 PM DISTRIBUTION OPERATION SUPERVISOR Gender Identity Female 05/01/2018 3:00 PM DISTRIBUTION OPERATION SUPERVISOR Sexual Orientation Straight 05/17/2020 9: 58 PM [...] documented as of this encounter Care Teams Turn Out Relationship Specialty Start Date End Date Roxanna Burnett APRN, C.N.P. [address] [place] [phone] PCP - General Family Medicine 01/05/22 04/10/23 documented as of this encounter
--- OUTSIDE RECORDS SUMMARY | 2023-04-24 08:26 | XMS_ITS | Encounter Summary ---
Author Name Unknown Organization [facility] Address [address] [place] [id number] Care Team Providers Care Electrical Tryout Person Name Role Phone Roxanna Burnett APRN, C.N.P. Primary Care Provide r Reason for Visit * Reason Onset Date Comments Disability Form 04/26/2022 Encounter Details Date Type Department Care Team (Latest Contact Info) Description 04/26/2022 Clinical Communication Department of Physical Medicine and Rehabilitation in [place], [place] [address] [place] [address] Jatin Escamilla M.D. [address] [place] [id number] Disability Form Social History Tobacco Use Types [...] How often do you attend chur or hindu services? Never 06/01/2021 Do you belong to any clubs o r organizations such as gnosticist groups, unions, fraternal or athletic groups, or [...] Answer Date Recorded PHQ-2 Score 0 01/06/2022 [facility]ational Stress Questionnaire [...] to sleep or slept in a senior living (including now)? Yes 06/01/2021 Depression Answer Date [...] Sex Assigned at Female 05/01/2018 3:00 PM LAND CLASSIFIER Gender Identity Female 05/01/2018 3:00 PM LAND CLASSIFIER Sexual Orientation Straight 05/17/2020 9: 58 PM CDT documented as of this encounter Miscellaneous Notes * Telephone Encounter - Tatiana Gay Js - 04/26/2022 9:12 AM CST PROVIDER'S NAME: Dr. Escamilla CALLER'S NAME: Tracey Kim at [employer] WHAT IS THE CALL REGARDING? Reason for the Call: Tracey has a disability form for the patient and was wondering if Dr. Segura fill it out. Details/Desired Outcome: Disability form filled out. Additional Comments: I have given her our fax number, please keep an eye out for the form. Please call her if you have any questions. Tracey Kim's [employer] General Office Number: [phone] [employer] PATIENT OR CALLER'S PHONE NUMBER: [phone] CLASSIFIER documented in this encounter Plan of Treatment Not on file documented as of this encounter Visit Diagnoses Not on filedocumented in this encounter Additional Health Concerns Assessment Noted Time PHQ-9 Depression Total Score: 0 01/07/20 22 4:13 PM CDT documented as of this encounter Care Teams Electrical Tryout Person Relationship Specialty Start Date End Date Roxanna Burnett APRN, C.N.P. [address] [place] [phone] PCP - General Family Medicine 01/05/22 04/10/23 documented as of this encounter
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
[2023-04-24 08:49] LABS: Troponin, Point-of-Care* 0.01 ng/ml (0.01-0.04)
[2023-04-24 09:06] LABS: Lactate Sepsis w/Reflex* 1.3 mmol/L (0.5-1.9)
[2023-04-24 09:09] LABS: Basophils Percent Auto 0.1 % (0.0-3.0); Hematocrit 38.8 % (33.0-51.0); Immature Granulocytes Pct Auto 0.3 %; Lymphocytes Percent Auto 5.5 % (20-44); Mean Corpuscular HGB Conc 34 gm/dL (32-36); Mean Corpuscular Hemoglobin 32 pg (26-34); Mean Corpuscular Volume 97 fL (80-100); Monocytes Percent Auto 12.8 % (0.0-11.0); Neutrophils Percent Auto 81.3 % (42.0-72.0); Platelet Count* 187 K/uL (140-440); RDW Coefficient of Variation % 11.8 % (11.5-15.5); Red Blood Count 4.02 m/uL (4.00-5.20); White Blood Count* 21.39 K/uL (4.50-11.00)
[2023-04-24 09:10] LABS: Slide Review Reflex No
[2023-04-24] MEDS: cefTRIAXone 1 GM in 0.9 % SODIUM CHLORIDE Mini-bag 100 ML IVPB (09:12)
[2023-04-24] MEDS: 0.9 % SODIUM CHLORIDE 1000 ml 1,000 ML IV (09:12)
[2023-04-24 09:28] LABS: Albumin* 3.4 g/dL (3.3-5.0); Chloride* 97 mmol/L (96-114)
[2023-04-24 09:29] LABS: Potassium* 3.6 mmol/L (3.6-5.1); Sodium* 129 mmol/L (135-149)
[2023-04-24 09:31] LABS: Alanine Aminotransferase* 25 U/L (4-35); Alkaline Phosphatase* 114 U/L (40-150); Anion Gap 7 mEq/L (7-15); Aspartate Amino Transferase* 22 U/L (12-35); Bilirubin Total* 0.9 mg/dL (0.1-1.5); Blood Urea Nitrogen* 20 mg/dL (7-30); Carbon Dioxide* 25 mmol/L (20-32); Creatinine* 1.1 mg/dL (0.5-1.5); Est. Creatinine Clearance* 61.75; Estimated Glomerular Filt Rate 59 ml/min; Glucose* 122 mg/dL (60-115); Total Protein* 6.8 g/dL (6.0-8.3)
[2023-04-24 09:32] LABS: Calcium* 8.4 mg/dL (8.4-10.6)
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
--- NOTE | 2023-04-24 10:12 | ED.NURSE ---
given report to Keli Morales on M/S for admission to room CCU 3 went via cart.
--- NOTE | 2023-04-24 10:18 | ED.NURSE ---
Patient admitted to floor. asked patient if she wanted us to contact anyone regarding her admission. Patient declined. All belongings sent with patient.
[2023-04-24] MEDS: PIPERACILLIN/TAZOBACTAM 3.375 GM in 0.9 % SODIUM CHLORIDE Mini-bag 100 ML IVPB ×3 (11:49→22:50)
[2023-04-24] MEDS: ACETAMINOPHEN 500 MG TABLET 1000 MG PO ×2 (12:44→22:52)
[2023-04-24] MEDS: 0.9 % SODIUM CHLORIDE 1000 ml 1,000 ML 125 ML IV ×2 (12:45→22:49)
--- NOTE | 2023-04-24 19:38 | PC.NURSE ---
Nursing Care Hours: [id number] Pt arrived to floor around 1030 on stretcher, assisted into bed. Pt lethargic and sleeping. VSS, no c/o pain. IV patent, bolus infusing from ED. Admission information went over with pt. Murmur heard during assessment. Tele shows NSR. Report given to Paulina ROSS
[2023-04-24] MEDS: ENOXAPARIN 40 MG/0.4 ML INJ SUBCUT (21:02)
[2023-04-24] MEDS: SODIUM CHLORIDE 0.9 % (FLUSH) 10 ML SYRINGE 5 ML IVF (21:02)
--- NOTE | 2023-04-24 22:58 | PC.NURSE ---
Patient arrived to [facility] from ED. Very sleepy during the first couple hours, but becoming more alert as the day passes. Vitally stable and cooperative. Patient able to ambulate independently in room. Requested bath during the evening- was able to take one. PRN tylenol given for headache around 1200, and then again for fever of 100.3 at 2300. IV antibiotics being administered. Nursing to continue to monitor and assess.
[2023-04-25] VITALS (9 sets, daily range): BP systolic 109–132; BP diastolic 58–89; PULSE 73–89; RESP 16–18; TEMP 36.7–36.8; O2SAT 92–97
[2023-04-25] MEDS: PIPERACILLIN/TAZOBACTAM 3.375 GM in 0.9 % SODIUM CHLORIDE Mini-bag 100 ML IVPB ×3 (04:26→16:55)
[2023-04-25 06:38] LABS: Hematocrit 36.8 % (33.0-51.0); Hemoglobin* 12.5 gm/dL (12.0-16.0); Mean Corpuscular HGB Conc 34 gm/dL (32-36); Mean Corpuscular Hemoglobin 33 pg (26-34); Mean Corpuscular Volume 96 fL (80-100); Platelet Count* 217 K/uL (140-440); Red Blood Count 3.82 m/uL (4.00-5.20); White Blood Count* 16.59 K/uL (4.50-11.00)
[2023-04-25 06:43] LABS: Slide Review Reflex No
[2023-04-25 06:51] LABS: Chloride* 103 mmol/L (96-114); Potassium* 3.4 mmol/L (3.6-5.1); Sodium* 134 mmol/L (135-149)
[2023-04-25 06:54] LABS: Creatinine* 0.9 mg/dL (0.5-1.5); Est. Creatinine Clearance* 75.48; Estimated Glomerular Filt Rate 75 ml/min
[2023-04-25 06:55] LABS: Anion Gap 7 mEq/L (7-15); Blood Urea Nitrogen* 17 mg/dL (7-30); Calcium* 8.1 mg/dL (8.4-10.6); Carbon Dioxide* 24 mmol/L (20-32); Glucose* 109 mg/dL (60-115)
--- NOTE | 2023-04-25 07:43 | PC.NURSE ---
Pt is oriented to self x3. Pt denies pain, chest pain, pain, SOB, and N/V.?Pt is up ad jose in room. Orthostatic blood pressures done pt denies dizziness, lightheadedness and nausea. Pt slept throughout most of night. Night uneventful.
--- NOTE | 2023-04-25 10:57 | CT_ITS ---
Final Report Patient: MITCHELL MCPHERSON Facility:?[facility] Patient ID:?[id number] Site Patient ID:?[id number]. Site :?[id number] Study:?CT Chest PE 95CC ISOVUE 370-04/25/2023 2:49:38 PM Ordering Physician:?GLORIA Final Report: Indication: Abnormality seen on echo, possible PE Technique: CT angiogram of the chest with IV contrast. Pulmonary embolism protocol. Multiplanar and maximum intensity projection reformats are provided. Contrast: 95 mL Isovue 370. Please note that all CT scans at this facility use dose modulation, iterative reconstruction, and/or weight-based dosing when appropriate to reduce radiation dose to as low as reasonably achievable. Comparison: Radiograph 04/22/2023 Findings: Well timed contrast bolus. No pulmonary embolus. Significantly dilated main and branch pulmonary arteries. Dilated right-sided cardiac chambers. There is ventricular septal flattening and deviation to the left. There is no reflux below the diaphragm. Few atherosclerotic vascular calcifications. No pericardial effusion. Bilateral small posteriorly layering pleural effusion. Bibasilar atelectasis. No pulmonary edema. No pulmonary consolidation or mass. Normal airway. No mediastinal adenopathy. The included upper abdomen appears normal. No fracture or focal bone lesion. Impression: 1. No pulmonary embolus. 2. Dilated right heart chambers with ventricular septal flattening. Significantly dilated branch pulmonary arteries. Findings are consistent with pulmonary hypertension. 3. No significant pulmonary parenchymal abnormalities. Expiratory imaging with mild atelectasis. 4. Very small bilateral pleural effusions. Please note that all CT scans at this facility use dose modulation, iterative reconstruction, and/or weight-based dosing when appropriate to reduce radiation dose to as low as reasonably achievable. Dictated by Teagan Welch MD @ 04/25/2023 3:01:27 PM (Electronic Signature)
[2023-04-25] MEDS: 0.9 % SODIUM CHLORIDE 1000 ml 1,000 ML 125 ML IV (11:12)
--- NOTE | 2023-04-25 11:57 | PM.IMPN1 ---
Progress Note: A&P Assessment and plan (1) Bacteremia: Problem details: -in setting of pyelonephritis. Fevers > 103?, heart rate >100, respiratory rate >20 in past 48 hours. 1 of 2 BC on 04/22 growing Gram-negative rods - E coli. CXR shows no acute cardiopulmonary disease -has refused hospital admission 04/22 and 04/23, removing IV in ED and leaving AMA -today, systolic <100, WBC 21.39, lactate 1.3, afebrile -in ED, received ceftriaxone 1g and 1 L NS -start Zosyn 3.375 q 6 hours, continue maintenance fluids, boluses prn. Creatinine 1.1, monitor. -UC negative, BC x2 on 04/23 and 04/24 NGTD -monitor for new or worsening symptoms -in the event patient should request to leave AMA, refusing further hospital cares, consider setting up outpatient ceftriaxone 2 g Q 24 hours 04/25: As above, 1 of 6 BC growing E coli. WBC trending down. Last fever 12 hours ago. Should patient decide to leave AMA today, would prescribe oral Levaquin. Discussed with patient importance of filling this prescription and taking the pills as prescribed. Echocardiogram completed, preliminary results concerning for PE, no vegetations seen, no bubble study completed. Patient had become more agitated during this time so further exam discontinued. Patient agreeable to CT PE to rule this out. Status: Acute (2) Pyelonephritis: Problem details: CT shows patchy ill-defined areas of hypodensity within the renal cortices, right greater than left, suspicious for pyelonephritis.UA cloudy, +nitrites LE. UC pending as of 04/24/23. 04/25: Management recommendation as above Status: Acute (3) Hyponatremia: Problem details: Sodium 129 on 04/24/23, 134 today following IV hydration, likely little oral intake Status: Acute (4) Substance abuse: Problem details: 04/23/23 + drug screen for meth & marijuana at [facility]. Patient denies use. 04/25: Admits to smoking meth. Suspected substance found in her personal belongings, law enforcement involved. Given patient's initial behaviors this morning, male visitor bringing a personal belongings bag, and change in behavior later in the morning, would not rule out using meth while in the hospital though this is only a suspicion. Status: Chronic Plan Continue IV antibiotics, possible discharge tomorrow pending continued clinical and lab improvement. If patient should request to leave AMA, would recommend oral Levaquin. Time Spent With Patient Total time spent: Total time spent caring for the patient today was 75 minutes. This includes time spent for the visit reviewing the chart, time spent during the visit, time spent after the visit and documentation and planning in coordination of care. Subjective Date Seen: 04/25/23 Interval history: When patient is for seen this morning, with nurse at bedside, she is quite irritable, again turned away from me when speaking to her. Does not want to answer questions but is instead focused on complaining about ED staff and tells us she does not like being accused of being a drug addict. She does not engage in listening to how we can help her. She has this morning already began talking about leaving the hospital. I had to step out of the room for only a couple of minutes to take a phone call from the hospital and when I return to let her know I would like to do her exam she is even more agitated, telling me someone has already listen to her heart and lungs (her nurse did this while I was in the room) and questions why I should have to listen to her heart and lungs because they are the same damn heart and lungs. She has her cell phone to her ear at this point and remains angry, allowing me to listen to her heart briefly until she turns away again. Of note, this morning prior to my initial exam, nursing staff had noticed a small Ziploc bag with what appeared to be a white substance laying open in her purse which was open and easily visible. Suspicion was that this was meth. I do not know if the patient confirmed or admitted to this. Hospital security and local law enforcement were involved and the bag was removed from her room. During an interval of approximately 2 hours later in the morning, nursing reports she does have a male adult latex ribbon machine operator visit her in her room, bringing her a bag of personal belongings. Shortly after this, staff told me the patient was requesting to leave. When I see her for a 3rd time, she is calmer, no longer agitated or angry. Asking appropriate questions regarding her current infection. I was able to explain to her that she has a pyelonephritis with 1 positive blood culture for which she was started on IV antibiotics. We also discussed that during her echocardiogram this morning, the preliminary result was concerning for a PE. I explained to her that a CT of her chest would help us to rule this out. She agreed to stay for the CT and the formal radiology reading. Exam Narrative: Exam Narrative: PHYSICAL EXAM General: Initially very agitated, angry, uncooperative, turning away from staff. A few hours later calm, asking appropriate questions. HEENT: Normocephalic, atraumatic, sclera white, EOMI, oral mucosa dry Cardiovascular: RRR, S1S2. No pitting edema Pulmonary: CTA bilaterally without rhonchi, rales, expiratory wheezes. No dyspnea on room air Neurological: Alert, agitated, angry, uncooperative Extremities: No gross joint deformity or swelling. AROMI. Neurovascularly intact Skin: Warm, dry. Const: Vital Signs, click to edit/add: Vital Signs - 24 hr 04/24/23 15:00 04/24/23 15:00 04/24/23 15:00 Temperature 98.6 F Pulse Rate 73 Pulse Rate [Left P ulse Oximeter] 80 80 Pulse Rate [orthos tatic lying Pulse Oximeter] Pulse Rate [orthos tatic sitting Puls e Oximeter] Pulse Rate [orthos tatic standing Pul se Oximeter] Respiratory Rate 22 16 Blood Pressure [Le ft Arm] 111/65 Blood Pressure [or thostatic lying Ri ght Arm] Blood Pressure [or thostatic sitting Right Arm] Blood Pressure [or thostatic standing Right Arm] Pulse Oximetry 95 Oxygen Delivery Me thod Room Air 04/24/23 19:00 04/24/23 22:52 04/24/23 23:00 Temperature 98.7 F 100.3 F H 100.3 F H Pulse Rate Pulse Rate [Left P ulse Oximeter] 84 95 Pulse Rate [orthos tatic lying Pulse Oximeter] Pulse Rate [orthos tatic sitting Puls e Oximeter] Pulse Rate [orthos tatic standing Pul se Oximeter] Respiratory Rate 16 18 Blood Pressure [Le ft Arm] 125/84 114/63 Blood Pressure [or thostatic lying Ri ght Arm] Blood Pressure [or thostatic sitting Right Arm] Blood Pressure [or thostatic standing Right Arm] Pulse Oximetry 96 91 Oxygen Delivery Me thod Room Air Room Air 04/24/23 23:00 04/24/23 23:00 04/25/23 04:20 Temperature 98.1 F Pulse Rate 99 Pulse Rate [Left P ulse Oximeter] 73 Pulse Rate [orthos tatic lying Pulse Oximeter] Pulse Rate [orthos tatic sitting Puls e Oximeter] Pulse Rate [orthos tatic standing Pul se Oximeter] Respiratory Rate 18 18 Blood Pressure [Le ft Arm] 117/77 Blood Pressure [or thostatic lying Ri ght Arm] Blood Pressure [or thostatic sitting Right Arm] Blood Pressure [or thostatic standing Right Arm] Pulse Oximetry 92 Oxygen Delivery Me thod Room Air 04/25/23 05:00 04/25/23 07:27 04/25/23 07:40 Temperature Pulse Rate 74 Pulse Rate [Left P ulse Oximeter] 73 Pulse Rate [orthos tatic lying Pulse Oximeter] 75 Pulse Rate [orthos tatic sitting Puls e Oximeter] 81 Pulse Rate [orthos tatic standing Pul se Oximeter] 79 Respiratory Rate 18 Blood Pressure [Le ft Arm] Blood Pressure [or thostatic lying Ri ght Arm] 128/75 Blood Pressure [or thostatic sitting Right Arm] 127/74 Blood Pressure [or thostatic standing Right Arm] 128/72 Pulse Oximetry Oxygen Delivery Me thod 04/25/23 07:40 04/25/23 11:07 04/25/23 11:10 Temperature 98.3 F 98.0 F 98.1 F Pulse Rate Pulse Rate [Left P ulse Oximeter] 83 89 87 Pulse Rate [orthos tatic lying Pulse Oximeter] Pulse Rate [orthos tatic sitting Puls e Oximeter] Pulse Rate [orthos tatic standing Pul se Oximeter] Respiratory Rate 16 16 16 Blood Pressure [Le ft Arm] 117/69 109/58 L 109/58 L Blood Pressure [or thostatic lying Ri ght Arm] Blood Pressure [or thostatic sitting Right Arm] Blood Pressure [or thostatic standing Right Arm] Pulse Oximetry 94 93 95 Oxygen Delivery Me thod Room Air Room Air Room Air Labs Labs: Laboratory Results - last 24 hr 04/25/23 05:52 WBC 16.59 H RBC 3.82 L Hgb 12.5 Hct 36.8 MCV 96 MCH 33 MCHC 34 Plt Count 217 Sodium 134 L Potassium 3.4 L Chloride 103 Carbon Dioxide 24 Anion Gap 7 BUN 17 Creatinine 0.9 Estimated Creat Clear 75.48 Estimated GFR 75 Glucose 109 Calcium 8.1 L
--- NOTE | 2023-04-25 17:00 | PM.EN ---
Chart Event Note Time Seen by Provider: 16:45 Date Seen: 04/25/23 Chart Event Note: Shannon's nurse told me that she is asking to leave AMA. I went to speak with her about the risks. Shannon told me that she wants to leave because she will sleep better in her own bed tonight and she could just come back in the morning. I spoke with her about how we are treating her for sepsis and pyelonephritis with IV antibiotics and that the risks of leaving at this point include worsening infection, sepsis, and . Shannon decided that she would stay.
--- NOTE | 2023-04-25 18:20 | PC.NURSE ---
end of shift. pt is alert x4. pt was upset and angry this a,m she was swearing at MD this am. she was not happy about test and being here. PD was here today. later pt friend brought her clothes and she was more sleepy and less angry. Pt denies pain, chest pain, pain, SOB, and N/V. Pt is up ad jose in room. Pt has going back and forth about leavening ama. 2 times MD went in and talked to pt and PT agreed to stay. IV is patent. Tele is NSR. she is eating, drinking, and voiding. we have had to explain whats going on several times with bladder/kidney infection., and Blood clutters. her son came to visit and when the nurse went in to the room the bed was raised up. explained that bed needs to be in the low position for safety and hospital policy.
--- NOTE | 2023-04-25 20:08 | PC.NURSE ---
Patient suddenly appeared at nurse's station and states she is leaving. Patient was exhibiting signs of agitation as she is leaving crying, raising voice, jerking movements, swearing, pushing past staff, refusing to stop, and discuss situation with staff. Signed AMA form. MD notified. Patient had removed 2 saline locks herself and put long sleeve shirt on. Had a spot of blood on left AC of shirt approx 3 inches in diameter. Refused to allow nursing to assess IV sites or apply pressure/bandaid. Nursing offered multiple times, patient states, it's fine. I informed patient in hallway as she was walking away, as she refused to stop and speak with me, that MD was sending an antibiotic to her pharmacy and she needed to follow up with her primary. Patient states, Ok. Continues to swear. Patient then walked to ER door and sat outside in chair. I did walk outside to speak with patient once objective signs of agitation had stopped. I, again, offered bandaid for IV site, patient refused. She states that her IV sites have stopped bleeding and will not allow me to apply pressure, dressing, or assess. Blood stain on left AC has not changed in size in approx 10 minute period. I again explained that she needed to fill her antibiotic at her pharmacy per MD and also follow up with primary. She states Ok. I have explained to patient that she is very ill and could if she leaves against medical advice. Patient states, I know. I stated, I want to make sure you understand. Patient states, I do.. Patient states she has a ride coming. Ron (security) was present for this conversation and witnessed entire interaction. roving department supervisor aware.
--- NOTE | 2023-04-25 20:44 | PC.NURSE ---
After patient left, 2 benadryl tablets found in table compartment with patient's glasses.
--- NOTE | 2023-04-26 13:28 | P.DS_ITS ---
DS: Providers Provider Date Seen: 04/25/23 Date of admission: 04/24/23 10:45 Primary care physician: Evelin Calvin MD Admitting Clinician: Rodney Ivory MD Consults: 04/24/23 10:45 Consult to [employer] [CONS] Routine Comment: Reason for Consult:: Social Service Consult Attending Physician on discharge: EMILY Garza, [facility] Date of Discharge: 04/25/23 DS: Diagnosis Discharge Diagnosis (1) Bacteremia: Status: Acute Problem details: -in setting of pyelonephritis. Fevers > 103?, heart rate >100, respiratory rate >20 in past 48 hours. 1 of 2 BC on 04/22 growing Gram-negative rods - E coli. CXR shows no acute cardiopulmonary disease -has refused hospital admission 04/22 and 04/23, removing IV in ED and leaving AMA -today, systolic <100, WBC 21.39, lactate 1.3, afebrile -in ED, received ceftriaxone 1g and 1 L NS -start Zosyn 3.375 q 6 hours, continue maintenance fluids, boluses prn. Creatinine 1.1, monitor. -UC negative, BC x2 on 04/23 and 04/24 NGTD -monitor for new or worsening symptoms -in the event patient should request to leave AMA, refusing further hospital cares, consider setting up outpatient ceftriaxone 2 g Q 24 hours (would likely be noncompliant and would require new IV each visit given h/o active substance abuse) 04/25: As above, 1 of 6 BC growing E coli. WBC trending down. Last fever 12 hours ago. Should patient decide to leave AMA today, would prescribe oral Levaquin. Discussed with patient importance of filling this prescription and taking the pills as prescribed. Echocardiogram completed, preliminary results concerning for PE, no vegetations seen, no bubble study completed. Patient had become more agitated during this time so further exam discontinued. Patient agreeable to CT PE to rule this out. (2) Pyelonephritis: Status: Acute Problem details: CT shows patchy ill-defined areas of hypodensity within the renal cortices, right greater than left, suspicious for pyelonephritis.UA cloudy, +nitrites LE. UC pending as of 04/24/23. 04/25: Management recommendation as above (3) Hyponatremia: Status: Acute Problem details: Sodium 129 on 04/24/23, 134 today following IV hydration, likely little oral intake (4) Substance abuse: Status: Chronic Problem details: 04/23/23 + drug screen for meth & marijuana at [facility]. Patient denies use. 04/25: Admits to smoking meth. Suspected substance found in her personal bel ongings, law enforcement involved. Given patient's initial behaviors this morning, male visitor bringing a personal belongings bag, and change in behavior later in the morning, would not rule out using meth while in the hospital though this is only a suspicion. DS: Summary Hospital Course Hospital Course: [age] year old female past medical history significant for methamphetamine abuse, tobacco dependence, ADD was admitted to the medical floor for management sepsis in setting of pyelonephritis. Course of care and details as noted above. PATIENT LEFT AMA. Prescribed oral Levaquin. Remainder of chronic medical comorbidities were monitored and managed with home medications. Time Spent with Patient Time attestation: Total time spent providing and/or coordinating discharge services: Time spent: Greater than 30 minutes Exam Narrative: Exam Narrative: PHYSICAL EXAM from morning of discharge: General: Initially very agitated, angry, uncooperative, turning away from staff. A few hours later calm, asking appropriate questions. HEENT: Normocephalic, atraumatic, sclera white, EOMI, oral mucosa dry Cardiovascular: RRR, S1S2. No pitting edema Pulmonary: CTA bilaterally without rhonchi, rales, expiratory wheezes. No dyspnea on room air Neurological: Alert, agitated, angry, uncooperative Extremities: No gross joint deformity or swelling. AROMI. Neurovascularly intact Skin: Warm, dry. Const: Vital Signs, click to edit/add: Vital Signs - 24 hr 04/25/23 15:36 04/25/23 15:59 04/25/23 16:00 Temperature 98.0 F Pulse Rate 74 Pulse Rate [Left P ulse Oximeter] 80 80 Respiratory Rate 18 18 Blood Pressure [Le ft Arm] 132/89 Pulse Oximetry 97 Oxygen Delivery Me thod Room Air DS: Data Data Completed and Pending Labs on day of discharge: Preliminary micro results at discharge 04/24/23 09:12 Blood Culture - Preliminary Blood NO GROWTH AFTER 48 HOURS 04/24/23 08:50 Blood Culture - Preliminary Blood NO GROWTH AFTER 48 HOURS Imaging Echo: Attestation: I have reviewed the pertinent imaging results. Radiologist's impression: Normal left ventricular size, normal thickness, normal global systolic function, EF 55%. Right ventricular cavity size is moderately enlarged, global systolic RV function is mildly reduced. RV pressure overload, moderate tricuspid regurgitation, no definite valvular vegetations identified, severely increased estimated pulmonary pressures by tricuspid regurgitation velocity in right arterial pressure (70 mmHg) CT scan - chest: Attestation: I have reviewed the pertinent imaging results. Radiologist's impression: No pulmonary embolus. Evidence of pulmonary hypertension. Discharge Plan Discharge Disposition: Left Against Medical Advice Date of Admission: 04/24/23 10:45 Attending Provider on Discharge: Brielle Mitchell Primary Care Provider: Evelin Calvin I Condition: Guarded Discharge Medications: New levofloxacin 750 mg tablet 750 mg PO DAILY Qty: 10 0RF Continued clobetasol 0.05 % ointment 1 applic topical BID Discontinued amoxicillin-pot clavulanate 875-125 mg tablet 1 tab PO BID Qty: 20 0RF Discharge Orders: Discharge Order (Routine); Ordered 04/26/23 Ordered By: Margie BANEGAS Form Signed: Yes Discharge Comments: Follow up with PCP Sunday, Return for any new or worsening symptoms, avoid recreational drug use (meth)
== END 2023-04-25 19:43 | disposition left against medical advice (07) | DRG 724 ==
LOC: ED 08:23 → MEDSURG 10:16
PROVIDERS: Admitting Provider Physician Assistant; Emergency Provider Student in an Organized Health Care Education/Training Program; PCP Family Medicine; Visit Provider Family Medicine
DX: R78.81 Bacteremia (principal); N10 Acute pyelonephritis; B96.20 Unspecified Escherichia coli [E. coli] as the cause of diseases classified elsewhere; F15.10 Other stimulant abuse, uncomplicated; I27.20 Pulmonary hypertension, unspecified; F32.5 Major depressive disorder, single episode, in full remission; I45.19 Other right bundle-branch block; F90.9 Attention-deficit hyperactivity disorder, unspecified type; F17.290 Nicotine dependence, other tobacco product, uncomplicated
CPT/HCPCS: 36415; 71275; 80048; 80053; 81001; 83605; 84484; 85025; 85027; 87040; 93005; 93306; 99284; 99285; A9270; J0696; J1650; J2543; J7030; Q9967